=== PATIENT | female | born 1955 | race Caucasian/White ===

== ENCOUNTER → 2016-11-22 | Outpatient (REF) | payer BC ==
[~2016-11-22] MED LIST: /ESOM40CA; LIDO5DIS; VICO5TAB; VITAMIN D50000 UNT
== END ==
LOC: M LAB REF 12:17
PROVIDERS: ATTEND Physician Assistant
DX: J02.9 Acute pharyngitis, unspecified (principal)

== ENCOUNTER → 2018-12-02 | Outpatient (REF) | payer BC | LOC: M LAB REF 13:23 | PROVIDERS: ATTEND Plastic Surgery Surgery of the Hand | DX: D21.0 Benign neoplasm of connective and other soft tissue of head, face and neck (principal) ==

== ENCOUNTER → 2019-05-05 | Outpatient (CLI) | payer BC ==
[~2019-05-05] MED LIST changes: -/ESOM40CA; +NEXI1CAP3
[2019-05-05 13:11] LABS: BASO # 0.1 10^3/uL (0.0-0.2); EOS # 0.2 10^3/uL (0.0-0.50); EOS % 2.5 % (0.0-3.0); HEMATOCRIT 47.6 % (36.0-47.0); HEMOGLOBIN 15.8 g/dl (12.0-15.5); LYMPH # 2.2 10^3/uL (1.5-4.5); LYMPH % 31.3 % (24.0-44.0); MEAN CORPUSCULAR HEMOGLOBIN 31.5 pg (27.0-33.0); MEAN CORPUSCULAR HGB CONC 33.2 g/dl (32.0-36.5); MONO # 0.6 10^3/uL (0.0-0.8); NEUTROPHILS % 56.8 % (36.0-66.0); PLATELET COUNT, AUTOMATED 377 10^3/uL (150-450); RED BLOOD COUNT 5.01 10^6/uL (4.00-5.40); WHITE BLOOD COUNT 7.1 10^3/uL (4.0-10.0)
[2019-05-05 13:22] LABS: ALBUMIN 4.1 GM/DL (3.2-5.2); ALT/SGPT 21 U/L (12-78); BILIRUBIN,TOTAL 0.4 MG/DL (0.2-1.0); BLOOD UREA NITROGEN 10 MG/DL (7-18); CARBON DIOXIDE LEVEL 32 MEQ/L (21-32); CHLORIDE LEVEL 105 MEQ/L (98-107); CHOLESTEROL LEVEL 170 MG/DL (<200); FREE T4 0.94 NG/DL (0.76-1.46); GLOMERULAR FILTRATION RATE > 60.0 (>45); GLUCOSE, FASTING 94 MG/DL (70-100); HDL CHOLESTEROL 50 MG/DL (>40); LDL CHOLESTEROL 96 MG/DL (<100); NON-HDL-C 120 MG/DL; POTASSIUM SERUM 4.2 MEQ/L (3.5-5.1); SODIUM LEVEL 141 MEQ/L (136-145); THYROID STIMULATING HORMONE 0.782 uIU/ML (0.358-3.740); TOTAL PROTEIN 7.7 GM/DL (6.4-8.2); TRIGLYCERIDES LEVEL 118 MG/DL (<150)
[2019-05-05 13:52] LABS: HEMOGLOBIN A1c 5.8 %
--- NOTE | 2019-05-05 21:29 | REP ---
Clinical: Dyspnea . Comparison: 03/03/2016 . Technique: PA and lateral. Findings: The mediastinum and cardiac silhouette are normal. The lung jara are clear and without acute consolidation, effusion, or pneumothorax. The skeletal structures are intact and normal. Impression: 1. No acute cardiopulmonary process. Electronically Signed by Ronan Penn MD 05/05/2019 09:20 P
== END ==
LOC: M WUC 08:18
PROVIDERS: ATTEND Physician Assistant
DX: Z13.29 Encounter for screening for other suspected endocrine disorder (principal); Z13.220 Encounter for screening for lipoid disorders; R06.00 Dyspnea, unspecified

== ENCOUNTER → 2019-05-28 | Outpatient (REF) | payer BC | LOC: M LAB REF 17:19 | PROVIDERS: ATTEND Radiology Diagnostic Radiology | DX: N60.31 Fibrosclerosis of right breast (principal) ==

== ENCOUNTER → 2020-04-22 | Outpatient (CLI) | payer BC ==
[2020-04-22 10:03] LABS: BASO # 0.1 10^3/uL (0.0-0.2); BASO % 0.6 % (0.0-1.0); EOS # 0.3 10^3/uL (0.0-0.5); EOS % 3.8 % (0.0-3.0); HEMATOCRIT 45.2 % (36.0-47.0); LYMPH # 2.2 10^3/uL (1.5-5.0); MEAN CORPUSCULAR HEMOGLOBIN 30.9 pg (27.0-33.0); MEAN CORPUSCULAR HGB CONC 33.2 g/dl (32.0-36.5); MEAN CORPUSCULAR VOLUME 93.2 fl (80.0-96.0); MONO # 0.7 10^3/uL (0.0-0.8); MONO % 8.4 % (0.0-5.0); NEUTROPHILS # 4.7 10^3/uL (1.5-8.5); NEUTROPHILS % 58.8 % (36.0-66.0); PLATELET COUNT, AUTOMATED 369 10^3/uL (150-450); RED BLOOD COUNT 4.85 10^6/uL (4.00-5.40)
[2020-04-22 10:23] LABS: HEMOGLOBIN A1c 5.8 %
[2020-04-22 10:30] LABS: ALT/SGPT 28 U/L (12-78); BILIRUBIN,TOTAL 0.5 MG/DL (0.2-1.0); BLOOD UREA NITROGEN 11 MG/DL (7-18); CALCIUM LEVEL 9.6 MG/DL (8.8-10.2); CARBON DIOXIDE LEVEL 28 MEQ/L (21-32); CHLORIDE LEVEL 105 MEQ/L (98-107); CREATININE FOR GFR 0.66 MG/DL (0.55-1.30); GLOMERULAR FILTRATION RATE > 60.0 (>45); GLUCOSE, FASTING 95 MG/DL (70-100); POTASSIUM SERUM 4.7 MEQ/L (3.5-5.1); SODIUM LEVEL 141 MEQ/L (136-145); TOTAL PROTEIN 7.6 GM/DL (6.4-8.2)
== END ==
LOC: M WUC 08:13
PROVIDERS: ATTEND Physician Assistant
DX: R73.01 Impaired fasting glucose (principal)

== ENCOUNTER → 2020-11-05 | Outpatient (CLI) | payer BC ==
[2020-11-05 12:48] LABS: BASO # 0.1 10^3/uL (0.0-0.2); BASO % 1.1 % (0.0-1.0); EOS # 0.1 10^3/uL (0.0-0.5); EOS % 1.5 % (0.0-3.0); HEMATOCRIT 41.7 % (36.0-47.0); HEMOGLOBIN 13.9 g/dl (12.0-15.5); LYMPH # 2.7 10^3/uL (1.5-5.0); LYMPH % 33.6 % (24.0-44.0); MEAN CORPUSCULAR HEMOGLOBIN 30.2 pg (27.0-33.0); MEAN CORPUSCULAR HGB CONC 33.3 g/dl (32.0-36.5); MEAN CORPUSCULAR VOLUME 90.7 fl (80.0-96.0); MONO # 0.7 10^3/uL (0.0-0.8); MONO % 8.2 % (0.0-5.0); NEUTROPHILS # 4.5 10^3/uL (1.5-8.5); NEUTROPHILS % 55.2 % (36.0-66.0); PLATELET COUNT, AUTOMATED 361 10^3/uL (150-450); WHITE BLOOD COUNT 8.1 10^3/uL (4.0-10.0)
[2020-11-05 13:27] LABS: ALBUMIN 4.2 GM/DL (3.2-5.2); ALT/SGPT 26 U/L (12-78); BILIRUBIN,TOTAL 0.5 MG/DL (0.2-1.0); BLOOD UREA NITROGEN 14 MG/DL (7-18); CALCIUM LEVEL 9.6 MG/DL (8.8-10.2); CARBON DIOXIDE LEVEL 28 MEQ/L (21-32); CHLORIDE LEVEL 105 MEQ/L (98-107); CHOLESTEROL LEVEL 154 MG/DL (<200); CHOLESTEROL RISK RATIO 3.347 (<5); CREATININE FOR GFR 0.87 MG/DL (0.55-1.30); FREE T4 1.14 NG/DL (0.76-1.46); GLOMERULAR FILTRATION RATE > 60.0 (>45); GLUCOSE, FASTING 104 MG/DL (70-100); HDL CHOLESTEROL 46 MG/DL (>40); LDL CHOLESTEROL 89 MG/DL (<100); NON-HDL-C 108 MG/DL; POTASSIUM SERUM 3.5 MEQ/L (3.5-5.1); SODIUM LEVEL 138 MEQ/L (136-145); THYROID STIMULATING HORMONE 0.454 uIU/ML (0.358-3.740); TOTAL PROTEIN 7.1 GM/DL (6.4-8.2); TRIGLYCERIDES LEVEL 93 MG/DL (<150)
[2020-11-05 13:56] LABS: HEMOGLOBIN A1c 5.3 %
== END ==
LOC: M WUC 11:21
PROVIDERS: ATTEND Family Medicine
DX: I10 Essential (primary) hypertension (principal); K21.9 Gastro-esophageal reflux disease without esophagitis; R73.01 Impaired fasting glucose

== ENCOUNTER → 2021-01-24 | Outpatient (CLI) | payer BC ==
--- NOTE | 2021-01-26 01:32 | ECWPNPC ---
PATIENT NAME: QUYNH GAMBOA : 1955 GENDER: FEMALE VISIT DATE: 01/24/2021 DISCHARGE DATE: 01/24/21 1354 VISIT LOCKED DATE TIME: PHYSICIAN: DUGLAS ALNDRY RESOURCE: DUGLAS LANDRY REASON FOR APPOINTMENT 1. MID BACK/ THORACIC HISTORY OF PRESENT ILLNESS DEPRESSION SCREENING: PHQ-2 (2015 EDITION) LITTLE INTEREST OR PLEASURE IN DOING THINGS?NOT AT ALL FEELING DOWN, DEPRESSED, OR HOPELESS?NOT AT ALL TOTAL SCORE0 65-YEAR-OLD FEMALE IN FOR INITIAL PAIN CONSULT WITH REGARDS TO THORACIC BACK PAIN. PATIENT ADMITS THE PAIN HAS BEEN PRESENT FOR SEVERAL YEARS. WHEN ASKED SHE DENIES HISTORY OF TRAUMA. PATIENT DOES ADMIT TO HAVING RADIOFREQUENCY ABLATIONS IN THE PAST WITH GOOD RESULTS. SHE RATES HER PAIN CURRENTLY AT A 6 OUT OF 10 AND DESCRIBES IT BURNING, AND CONTINUOUS. GENERAL: - - -. FALL RISK SCREENING: SCREENING : NO FALLS REPORTED IN THE LAST YEAR , : NO FALLS REPORTED IN THE LAST YEAR. PAIN SCREENING: PATIENT HAS A COMPLAINT OF ACUTE OR CHRONIC PAIN :YES LOCATION OF PAIN:MID BACK, LOW BACK INTENSITY OF PAIN (SCALE OF 1 TO 10):6 WHAT DOES YOUR PAIN FEEL LIKE:BURNING, CONTINOUS DURATION:CONTINOUS, CONSTANT, AWAKENS FROM SLEEP PAIN IS INCREASED BY:ACTIVITIES, PROLONGED STANDING PAIN IS DECREASED BY:USE OF PAIN MEDICATIONS, SITTING NAPROXEN HELPED WITH SLEEP. NURSING NOTE: - - -. PAIN CENTER INTAKE QUESTIONS: DO YOU HAVE A HISTORY OF MRSA? :NO DO YOU TAKE A BLOOD THINNERS? :NO DO YOU HAVE ANY BLEEDING DISORDERS? :NO ANY NEW NUMBNESS OR WEAKNESS IN YOUR LEGS OR ARMS? :NO ANY PACEMAKER,DEFIBRILLATOR, OR DORSAL COLUMN STIMULATOR? :NO DO YOU HAVE ANY RASHES OR OPEN SORES? :NO ARE YOU ALLERGIC TO IV DYE? :NO ARE YOU DIABETIC? :NO ANY NEW PROBLEMS WITH YOUR MEDICATIONS? :NO HAVE YOU RECEIVED A VACCINE IN THE PAST 30 DAYS? :NO DO YOU PLAN TO RECEIVE A VACCINE IN THE NEXT 21 DAYS? :NO DO YOU NEED ANY PRESCRIPTION? :NO DO YOU TAKE ANY IMMUNOSUPPRESSIVE MEDICATIONS? :NO DO YOU HAVE ANY KIDNEY OR LIVER DISEASE? :NO IS THERE A CHANCE YOU COULD BE ? :NO ARE YOU BREAST FEEDING? :NO CURRENT MEDICATIONS TAKING AMLODIPINE BESYLATE 10 MG TABLET 1 TABLET ORALLY ONCE A DAY TAKING BREO ELLIPTA 200-25 MCG/INH AEROSOL POWDER BREATH ACTIVATED 1 PUFF INHALATION ONCE A DAY TAKING LISINOPRIL 20 MG TABLET 1 TABLET ORALLY ONCE A DAY TAKING PROAIR HFA 108 (90 BASE) MCG/ACT AEROSOL SOLUTION 2 PUFFS NEEDED INHALATION QID PRN MEDICATION LIST REVIEWED AND RECONCILED WITH THE PATIENT PAST MEDICAL HISTORY GERD HYPERTENSION ASTHMA ALLERGIES N.K.D.A. SURGICAL HISTORY RADIOFREQUENCY ABLATION THORACIC SPINE SOCIAL HISTORY GENERAL: TOBACCO USE ARE YOU A:CURRENT SMOKER MALES, AGE 65-75 WITH 5 PACK SMOKING HISTORY (100 CIGARETTES LIFETIME)YES LATEX QUESTIONNAIRE LATEX ALLERGY : HAVE YOU EVER DEVELOPED ANY TYPE OF REACTION AFTER HANDLING LATEX PRODUCTS SUCH RUBBER GLOVES, CONDOMS, DIAPHRAGMS, BALLOONS, SOCKS, OR UNDERWEAR?NO LATEX ALLERGY : HAVE YOU EVER DEVELOPED ANY TYPE OF REACTION DURING OR AFTER DENTAL APPOINTMENT, VAGINAL/RECTAL EXAMINATION, SURGICAL PROCEDURE, OR ANY OTHER EXPOSURE?NO LATEX RISK : HAVE YOU EVER HAD ANY DIFFICULTY BREATHING OR HIVES AFTER EATING OR HANDLING ANY FRUITS, OR VEGETABLES; SUCH KIWI, BANANAS, STONE FRUITS, OR CHESTNUTSNO LATEX RISK : DO YOU HAVE A PREVIOUS PERSONAL HISTORY OF MORE THAN NINE SURGERIES, SPINA BIFIDA, OR REPEATED CATHERIZATIONS? NO LATEX RISK : ARE YOU FREQUENTLY EXPOSED TO LATEX PRODUCTS IN YOUR OCCUPATION?NO DATE ASKED : 01/24/2021 ALCOHOL USE: NO. RECREATIONAL DRUG USE DRUG USE?NO CAFFEINE CAFFEINE USE?YES LANGUAGE LANGUAGES SPOKEN:SLOVAK LEARNING BARRIERS / SPECIAL NEEDS BARRIERS TO LEARNING?NO HEARING IMPAIRED?NO VISION IMPAIRED?YES :CORRECTIVE LENSES COGNITIVELY IMPAIRED?NO READINESS TO LEARN?YES LEARNING PREFERENCES?NO LEARNING CAPABILITIES PRESENT?YES EMOTIONAL BARRIERS?NO SPECIAL DEVICES?NO AUTOMOBILE DAMAGE APPRAISER NEEDED?NO REVIEW OF SYSTEMS CONSTITUTIONAL: ANY RECENT FEVER NO . CHILLS NO . WEIGHT CHANGE OF UNKNOWN REASONS NO . MUSCULOSKELETAL: ANY UNUSUAL JOINT PAIN OR SWELLING NOT MENTIONED NO . SYSTEMIC LUPUS NO . ANY NEUROMUSCULAR DISORDER NOT MENTIONED NO . LYME DISEASE NO . GASTROENTEROLOGY: ANY NEW CHANGE IN BOWEL CONTROL? NO . HISTORY OF LIVER DISORDER NOT MENTIONED NO . HISTORY OF UNUSUAL ABDOMINAL PAIN OR CRAMPING NOT MENTIONED NO . NO CONSTIPATION. GENITOURINARY: ANY NEW CHANGE IN BLADDER CONTROL? NO . ANY RENAL/KIDNEY CONDITON NOT MENTIONED NO . NEUROLOGY: HISTORY OF TBI NOT MENTIONED NO . OTHER NEW NUMBNESS OR PAIN PATTERNS NOT MENTIONED NO . NEW ONSET DIZZINESS OR NEUROLOGICAL CHANGES NOT MENTIONED NO . HISTORY OF SEVERE HEADACHES NOT MENTIONED NO . HISTORY OF STROKE OR NEUROLOGICAL DISORDER NOT MENTIONED NO . CARDIOLOGY: HEART SURGERY NO . CONGESTIVE HEART FAILURE/FLUID OVERLOAD NOT MENTIONED NO . HISTORY OF CHEST PAIN,IRREGULAR HEART BEAT NOT MENTIONED NO . RESPIRATORY: SHORTNESS OF BREATH ON EXERTION, WHEEZES, UNUSUAL COUGH NOT MENTIONED NO . ENDOCRINOLOGY: ADRENAL GLAND OR THYROID DISORDERS NOT MENTIONED NO . UNUSUAL URINATION, DIZZINESS OR LETHARGY NOT MENTIONED NO . VITAL SIGNS WT 174.6 LBS, HT 55 IN, BMI 40.58 INDEX, BP 126/62 MM HG, HR 90 /MIN, RR 18 /MIN, TEMP 96.0 F, OXYGEN SAT % 94%, SAFE IN ENV? (Y/N) YES, NA INITIALS AW 1311, REVIEWED BY: LIA MARTELL MA. EXAMINATION GENERAL EXAMINATION: GENERALNO ACUTE DISTRESS, WELL NOURISHED AND HYDRATED. PSYCHAPPROPRIATE MOOD AND AFFECT . LUNGS:CLEAR TO AUSCULTATION BILATERALLY, NO WHEEZES, RHONCHI, RALES. HEART:NO MURMURS, REGULAR RATE AND RHYTHM. BACK:DENIES POINT TENDERNESS ALONG THORACIC SPINE, SURROUNDING SKIN SHOWS NO ERYTHEMA, ECCHYMOSIS, INCREASED WARMTH, AND/OR SKIN ERUPTIONS NOTED. . ASSESSMENTS THORACIC BACK PAIN - M54.6 (PRIMARY) TREATMENT THORACIC BACK PAIN [facility] MRI SPINE,THORACIC WITHOUT [id number] NOTES: 65-YEAR-OLD FEMALE IN FOR INITIAL PAIN CONSULT. GIVEN PRESENTING SYMPTOMS RECOMMENDED MRI OF THE THORACIC SPINE WITHOUT CONTRAST WITH POST IMAGING FOLLOW-UP. PATIENT HAS EXPRESSED UNDERSTANDING OF AND WAS IN AGREEMENT WITH TREATMENT PLAN. GIVEN TIME TO ASK QUESTIONS AND EXPRESS CONCERNS. PROCEDURE CODES FA211 ESTABILISHED PATIENT [facility] FACILITY CHARGE DISPOSITION & COMMUNICATION FOLLOW UP POST IMAGING (REASON: MRI OF THE THORACIC SPINE WITHOUT CONTRAST) ELECTRONICALLY SIGNED BY DESHAWN TOBIAS ON 01/25/2021 AT 10:02 AM EDT DISCLAIMER : THIS IS A VISIT SUMMARY EXTRACTED FROM THE [employer] CHART. IT IS NOT A COPY OF THE [employer] PROGRESS NOTE. WENDY
== END ==
LOC: M PAIN 13:00
PROVIDERS: ATTEND Family Medicine
DX: M54.6 Pain in thoracic spine (principal); K21.9 Gastro-esophageal reflux disease without esophagitis; I10 Essential (primary) hypertension; J45.909 Unspecified asthma, uncomplicated; F17.210 Nicotine dependence, cigarettes, uncomplicated; Z79.899 Other long term (current) drug therapy

== ENCOUNTER → 2021-01-28 | Outpatient (CLI) | payer BC ==
--- NOTE | 2021-01-28 19:21 | REPVR ---
PROCEDURE INFORMATION: Exam: MR Thoracic Spine Without Contrast Exam date and time: 01/28/2021 7:01 PM Age: 65 years old Clinical indication: Pain in thoracic spine; Without myelpathy or radiculopathy; Additional info: Back pain TECHNIQUE: Imaging protocol: Multiplanar magnetic resonance images of the thoracic spine without intravenous contrast. COMPARISON: No relevant prior studies available. FINDINGS: There is minimal loss of superior endplate height at T11 with edema. No osseous retropulsion. Remainder demonstrates preserved height and AP alignment. Incidental T4 hemangioma. There are few scattered small foci of increased STIR signal. Multilevel disc desiccation. No evidence of discitis/osteomyelitis. No abnormal cord signal or cord expansion. No epidural fluid collection. There are small thoracic protrusions without significant central canal stenosis. Right thyroid nodule measures 3.9 cm. IMPRESSION: 1. Minimal superior endplate compression fracture at T11 with edema, acute/subacute. 2. No abnormal cord signal or epidural fluid collection. 3. There are a few additional small scattered foci of increased STIR signal, nonspecific. Possible lipid poor hemangiomas, follow-up recommended to exclude more aggressive neoplastic process. 4. Small thoracic protrusions without significant central canal compromise. 5. Right thyroid mass measures 3.9 cm. Electronically signed by: aMdi Lester On 01/28/2021 19:22:04 PM
== END ==
LOC: M RAD 17:26
PROVIDERS: ATTEND Family Medicine
DX: E04.1 Nontoxic single thyroid nodule (principal); M54.6 Pain in thoracic spine

== ENCOUNTER → 2021-02-18 | Outpatient (CLI) | payer BC ==
--- NOTE | 2021-02-18 15:23 | REP ---
INDICATION: PAIN IN T SPINE, WEDGE COMPRESSION FX. COMPARISON: Comparison radiographs December 21, 2020. Comparison MRI study of the thoracic spine 28 January 2021.. TECHNIQUE: 22.0 mCi of technetium 99 M MDP is injected and three-phase bone scanning of the midthoracic area is carried out. FINDINGS: Anterior and posterior flow images are unremarkable. Blood pool images show no area of regional hyperemia. Delayed scan images demonstrate a horizontally distributed area of increased uptake along the vertebral and plate superiorly at what appears to be the T11 vertebral body. This corresponds with the area of anterior wedging and superior vertebral body edema seen on MRI. This is compatible with a subacute wedge compression fracture deformity, within 2 years. No other area of abnormal or suspicious uptake is seen. Mild degenerative uptake pattern is seen in the midthoracic spine. There is uptake in bilateral kidneys and in the urinary bladder. IMPRESSION: Findings consistent with a recent wedge compression fracture deformity at T11. No evidence to suggest skeletal metastatic disease seen. <Electronically signed by Judah Arteaga > 02/18/21 0633
== END ==
LOC: M RAD 11:31
PROVIDERS: ATTEND Physician Assistant
DX: S22.000A Wedge compression fracture of unspecified thoracic vertebra, initial encounter for closed fracture (principal); M54.6 Pain in thoracic spine; X58.XXXA Exposure to other specified factors, initial encounter; Y92.9 Unspecified place or not applicable; Y93.9 Activity, unspecified; Y99.9 Unspecified external cause status
CPT/HCPCS: 78315; A9503

== ENCOUNTER → 2021-02-18 | Outpatient (CLI) | payer BC | LOC: M WUC 10:32 | PROVIDERS: ATTEND Internal Medicine Endocrinology, Diabetes & Metabolism | DX: E55.9 Vitamin D deficiency, unspecified (principal) ==

== ENCOUNTER → 2021-03-04 | Outpatient (REF) | LOC: M LAB 13:28 | PROVIDERS: ATTEND Nurse Practitioner Adult Health | DX: Z02.9 Encounter for administrative examinations, unspecified (principal) ==

== ENCOUNTER → 2021-04-19 | Outpatient (CLI) | payer BC ==
--- NOTE | 2021-04-19 16:21 | DEXAMM ---
INDICATION: M81.0 AGE REL OSTEOPOROSIS W/O FX. COMPARISON: 12/10/2009. TECHNIQUE: Bone density was measured using dual-energy x-ray absorptiometry (DEXA). FINDINGS: AP SPINE L1-L4 BMD 1.081 g/cm2 Young Adult T-Score -0.9 Age Matched Z-Score 0.7. LT FEMUR, TOTAL BMD 0.811 g/cm2 Young Adult T-Score -1.6 Age Matched Z-Score -0.3. LT NECK BMD 0.800 g/cm2 Young Adult T-Score -1.7 Age Matched Z-Score -0.2. RT FEMUR, TOTAL BMD 0.797 g/cm2 Young Adult T-Score -1.7 Age Matched Z-Score -0.4. RT NECK BMD 0.761 g/cm2 Young Adult T-Score -2.0 Age Matched Z-Score -0.4. IMPRESSION: There is normal bone density of the spine. There is low bone density of the left hip. There is low bone density of the right hip. The density of the spine has decreased 2.7% since the initial exam on 12/10/2009. The density of the left hip has decreased 2.6% since initial exam on 12/10/2009. The density of the right hip has decreased 2.7% since the initial exam on 12/10/2009. FOLLOW-UP: Recommendation for the next bone density exam: 2 years. <Electronically signed by Young Mclaughlin > 04/19/21 0847
== END ==
LOC: M WHC 15:35
PROVIDERS: ATTEND Internal Medicine Endocrinology, Diabetes & Metabolism
DX: M81.0 Age-related osteoporosis without current pathological fracture (principal)

== ENCOUNTER → 2021-05-10 | Outpatient (CLI) | payer BC ==
[~2021-05-10] MED LIST changes: +LISI10TA22 PO
[2021-05-10 20:12] LABS: BLOOD UREA NITROGEN 15 MG/DL (7-18); CALCIUM LEVEL 9.2 MG/DL (8.8-10.2); CARBON DIOXIDE LEVEL 27 MEQ/L (21-32); CHLORIDE LEVEL 106 MEQ/L (98-107); CREATININE FOR GFR 0.65 MG/DL (0.55-1.30); GLOMERULAR FILTRATION RATE > 60.0 (>45); GLUCOSE, FASTING 95 MG/DL (70-100); SODIUM LEVEL 138 MEQ/L (136-145)
== END ==
LOC: M WUC 15:31
PROVIDERS: ATTEND Internal Medicine Endocrinology, Diabetes & Metabolism
DX: M81.0 Age-related osteoporosis without current pathological fracture (principal)

== ENCOUNTER 2021-05-17 15:04 | Outpatient (CLI) | payer BC ==
[~2021-05-17] VITALS: Ht 167.6 cm; Wt 78.0 kg
[~2021-05-17 15:04] MED LIST changes: -LISI10TA22 PO; +ZOLEDRONIC ACID 5 MG in IV 1 EA IV ONE
[2021-05-17 15:08] VITALS: BP 132/73
[2021-05-17] MEDS ORDERED: LISI10TA22 PO (15:39)
[2021-05-17 15:48] VITALS: BP 130/75
== END 2021-05-17 16:00 ==
LOC: M INFU 15:04
PROVIDERS: ATTEND Internal Medicine Endocrinology, Diabetes & Metabolism
DX: M81.0 Age-related osteoporosis without current pathological fracture (principal)
CPT/HCPCS: 96365; J3489

== ENCOUNTER → 2021-08-15 | Outpatient (CLI) | payer BC ==
[~2021-08-15] MED LIST changes: +LISI10TA22 PO; -ZOLEDRONIC ACID 5 MG in IV 1 EA IV ONE
[2021-08-15 17:15] LABS: BASO # 0.1 10^3/uL (0.0-0.2); BASO % 0.8 % (0.0-1.0); EOS # 0.2 10^3/uL (0.0-0.5); EOS % 1.9 % (0.0-3.0); HEMATOCRIT 43.1 % (36.0-47.0); HEMOGLOBIN 14.5 g/dl (12.0-15.5); LYMPH # 2.9 10^3/uL (1.5-5.0); LYMPH % 27.2 % (24.0-44.0); MEAN CORPUSCULAR HEMOGLOBIN 30.9 pg (27.0-33.0); MEAN CORPUSCULAR HGB CONC 33.6 g/dl (32.0-36.5); MEAN CORPUSCULAR VOLUME 91.9 fl (80.0-96.0); MONO # 0.8 10^3/uL (0.0-0.8); MONO % 7.7 % (2.0-8.0); NEUTROPHILS # 6.5 10^3/uL (1.5-8.5); PLATELET COUNT, AUTOMATED 399 10^3/uL (150-450); RED BLOOD COUNT 4.69 10^6/uL (4.00-5.40); WHITE BLOOD COUNT 10.5 10^3/uL (4.0-10.0)
[2021-08-15 17:31] LABS: ALT/SGPT 20 U/L (12-78); BILIRUBIN,TOTAL 0.2 MG/DL (0.2-1.0); BLOOD UREA NITROGEN 10 MG/DL (7-18); CALCIUM LEVEL 9.7 MG/DL (8.8-10.2); CARBON DIOXIDE LEVEL 28 MEQ/L (21-32); CHLORIDE LEVEL 106 MEQ/L (98-107); CREATININE FOR GFR 0.61 MG/DL (0.55-1.30); GLOMERULAR FILTRATION RATE > 60.0 (>45); GLUCOSE, FASTING 89 MG/DL (70-100); SODIUM LEVEL 139 MEQ/L (136-145); TOTAL PROTEIN 7.3 GM/DL (6.4-8.2)
== END ==
LOC: M LAB 15:58
PROVIDERS: ATTEND Family Medicine
DX: I10 Essential (primary) hypertension (principal)

== ENCOUNTER → 2021-08-15 | Outpatient (CLI) | payer BC ==
[2021-08-15 17:29] LABS: BLOOD UREA NITROGEN 10 MG/DL (7-18); CALCIUM LEVEL 9.6 MG/DL (8.8-10.2); CARBON DIOXIDE LEVEL 28 MEQ/L (21-32); CHLORIDE LEVEL 106 MEQ/L (98-107); CREATININE FOR GFR 0.62 MG/DL (0.55-1.30); GLOMERULAR FILTRATION RATE > 60.0 (>45); GLUCOSE, FASTING 89 MG/DL (70-100); SODIUM LEVEL 138 MEQ/L (136-145)
== END ==
LOC: M LAB 15:54
PROVIDERS: ATTEND Internal Medicine Endocrinology, Diabetes & Metabolism
DX: M81.0 Age-related osteoporosis without current pathological fracture (principal)

== ENCOUNTER → 2021-08-29 | Outpatient (CLI) | payer BC ==
[~2021-08-29] MED LIST changes: +PROHANCE 279.3MG/ML 15ML VIAL ONE
--- NOTE | 2021-08-30 10:27 | REPVR ---
PROCEDURE INFORMATION: Exam: MR Thoracic Spine Without and With Contrast Exam date and time: 08/29/2021 3:22 PM Age: 66 years old Clinical indication: Pain in thoracic spine; Additional info: Thoracic spine pain TECHNIQUE: Imaging protocol: Multiplanar magnetic resonance images of the thoracic spine without and with contrast. Contrast material: PROHANCE; Contrast volume: 15 ml; Contrast route: INTRAVENOUS (IV); COMPARISON: MRI-Spine,Thoracic without con 01/28/2021 6:16 PM FINDINGS: Vertebrae: There is no fracture or listhesis. Aside from scattered hemangiomas, most pronounced at T4, marrow signal is within normal limits. There is a prominent Schmorl's node along the superior endplate of T11. Spinal cord: Normal signal. No cord compression. Discs/Spinal canal/Neural foramina: There are shallow multilevel disc bulges. At T3/4, facet hypertrophy asymmetric to the right contributes to severe n right eural foraminal narrowing. At T4/5, facet hypertrophy asymmetric to the right contributes to severe right neural foraminal narrowing. Soft tissues: Unremarkable. IMPRESSION: No acute abnormality. Chronic changes most pronounced at T3/4 and T4/5, where facet hypertrophy asymmetric to the right contributes to severe right neural foraminal narrowing. Electronically signed by: Petra Rodriguez On 08/30/2021 10:27:13 AM
== END ==
LOC: M PLAIMG 13:59
PROVIDERS: ATTEND Physician Assistant
DX: M54.6 Pain in thoracic spine (principal); D43.4 Neoplasm of uncertain behavior of spinal cord
CPT/HCPCS: 72157; A9576

== ENCOUNTER 2021-09-06 21:29 | Emergency (ER) | payer BC ==
[~2021-09-06] VITALS: Ht 165.1 cm; Wt 80.1 kg
[~2021-09-06 21:29] MED LIST changes: -PROHANCE 279.3MG/ML 15ML VIAL ONE
--- OUTSIDE RECORDS SUMMARY | 2021-09-06 21:37 | CCD | Continuity of Care Document ---
Author Author Lizbeth BRAUN MD Organization Unknown Address [address] [place] [address], [address] [place] [address] Phone [phone] Care Team Providers Care Roller [employer] Name Role Phone FlorentinoReynaldo hardy MACARENA AUTM [phone] Problems Active Problems Provider Date Essential hypertension Rosa Braun MD Onset: 02/15/2021 Social History Type Date Description Comments Sex Unknown Cigarette Use Current Cigarette Smoker 1 Pack Daily ETOH Use Rarely consumes alcohol Tobacco Use Start: Unknown Patient is a current smoker, smo kes every day Smoking Status Reviewed: 08/18/21 Patient is a current smoker, smokes every day Allergies and adverse reactions Description No Known Drug Allergies Medications Active Medications SIG Qnty Indications Ordering Provide r Date Lisinopril 20mg Tablets 1 by mouth daily Unknown Amlodipine Besylate 10mg Tablets 1 by mouth daily Unknown Breo Ellipta 200-25mcg/Inh Aerosol as needed Unknown Calcium Citrate (Dosage Unknown) 1 tablet once daily Unknown History Medications Ergocalciferol 1.25mg (67243 Ut) C apsules 1 tablet every week with dinner for 12 weeks 12caps E55.9 Cla susan Braun MD 03/17/2021 - 08/18/2021 Immunizations Description No Information Available Vital Signs Date Vital Result Comment 08/18/2021 2:59pm BP Systolic 118 mmHg BP Diastolic 68 mmHg Heart Rate 88 /min Height 63.8 inches 5'3.80" Weight 172.00 lb BMI (Body Mass Index) 29.7 kg/m2 O2 % BldC Oximetry 94 % 03/17/2021 3:54pm BP Systolic 118 mmHg BP Diastolic 76 mmHg Heart Rate 104 /min Body Temperature 97.1 F Height 63.8 inches 5'3.80" Weight 172.00 lb BMI (Body Mass Index) 29.7 kg/m2 O2 % BldC Oximetry 94 % Results Test Acquired Date Facility Test Result H/L Range Note Basic Metabolic Profile 08/15/2021 [facility] [address] [place] [address] [phone] Glucose, Fasting 89 mg/dL Normal 70-100 Blood Urea Nitrogen 10 mg/dL Normal 7-18 Creatinine For GFR 0.62 mg/dL Normal 0.55-1.30 Glomerular Filtration Rate > 60.0 Normal >45 1 Sodium Level 138 mEq/L Normal 136-145 Potassium Serum 4.0 mEq/L Normal 3.5-5.1 Chloride Level 106 mEq/L Normal 98-107 Carbon Dioxide Level 28 mEq/L Normal 21-32 Anion Gap 4 mEq/L Low 8-16 Calcium Level 9.6 mg/dL Normal 8.8-10.2 Basic Metabolic Profile 05/10/2021 [facility] [address] [place] [address] [phone] - Glucose, Fasting 95 mg/dL Normal 70-100 Blood Urea Nitrogen 15 mg/dL Normal 7-18 Creatinine For GFR 0.65 mg/dL Normal 0.55-1.30 Glomerular Filtration Rate > 60.0 Normal >45 2 Sodium Level 138 mEq/L Normal 136-145 Potassium Serum 4.0 mEq/L Normal 3.5-5.1 Chloride Level 106 mEq/L Normal 98-107 Carbon Dioxide Level 27 mEq/L Normal 21-32 Anion Gap 5 mEq/L Low 8-16 Calcium Level 9.2 mg/dL Normal 8.8-10.2 1 Units are mL/min/1.73 m2 Chronic Kidney Disease Staging per NKF: Stage I & II GFR >=60 Normal to Mildly Decreased Stage III GFR 30-59 Moderately Decreased Stage IV GFR 15-29 Severely Decreased Stage V GFR <15 Very Little GFR Left ESRD GFR <15 on CHIEF DESIGN BRANCH 2 Units are mL/min/1.73 m2 Chronic Kidney Disease Staging per NKF: Stage I & II GFR >=60 Normal to Mildly Decreased Stage III GFR 30-59 Moderately Decreased Stage IV GFR 15-29 Severely Decreased Stage V GFR <15 Very Little GFR Left ESRD GFR <15 on CHIEF DESIGN BRANCH Procedures Date Code Description Status 08/18/2021 50686 Office/Outpatient Established Mo d MDM 30-39 Min Completed 03/17/2021 93514 Office/Outpatient Established Mo d MDM 30-39 Min Completed Medical Devices Description No Information Available Encounters Type Date Location Provider Dx Diagnosis Office Visit 03/17/2021 4:00p DR. Rosa Braun MD M 81.0 Age- related osteoporosis w/o current pathological fracture E04.2 Nontoxic multinodular goiter Z72.0 Tobacco use E55.9 Vitamin D deficiency, unspec ified Z71.6 Tobacco abuse counseling Assessments Date Code Description Provider 08/18/2021 M81.0 Age-related osteoporosis without current pathological fracture Rosa Braun MD 08/18/2021 E04.2 Nontoxic multinodular goiter Berta Braun MD 08/18/2021 Z72.0 Tobacco use Rosa Braun MD 08/18/2021 E55.9 Vitamin D deficiency, unspecifie d Rosa Braun MD 08/18/2021 Z71.6 Tobacco abuse counseling Rosa Braun MD 03/17/2021 M81.0 Age-related osteoporosis without current pathological fracture Rosa Braun MD 03/17/2021 E04.2 Nontoxic multinodular goiter Berta Braun MD 03/17/2021 Z72.0 Tobacco use Rosa Braun MD 03/17/2021 E55.9 Vitamin D deficiency, unspecifie d Rosa Braun MD 03/17/2021 Z71.6 Tobacco abuse counseling Rosa Braun MD Plan of Treatment 08/18/2021 - Rosa Braun MD* M81.0 Age-related osteoporosis without current pathological fracture* New Labs:* Calcium Level, Scheduled: 02/27/22 * Comments:* t MRI showed a vertebral compression fracture.Consistent with osteoporosis. . MRI spine, 01/28/21 shows AT 11 endplate compression fracture. Bone scan also shows a wedge compression at T11.Clinically she has osteoporosis. Since last being seen patient had bone density test performed. She also had IV zoledronic acid infused at the hospital. Somehow she states that she has a $500 left over bill from that procedure. Advised to call the hospital for clarification.DEXA scan, 04/19/21: T score spine = -0.9,T score left femoral neck = -1.7, T score right femoral neck = -2.0. The density of the hips decreased 2 percent since 2009.Patient tolerated her infusion. Will continue to take calcium and vitamin D. Unfortunately she continues to smoke.. ----Plan for another infusion in 2021 and then repeat bone density before the further infusions are decided upon. * Follow up:* lab february 2022 * E04.2 Nontoxic multinodular goiter* Comments:* . She has had a long-standing history of a right-sided thyroid nodule measuring 3.8 x 2.8 x 3.7 cm. She underwent fine-needle aspiration of this nodule in 2011 at [facility]. Final result was benign, scattered follicular cells and a macro follicular pattern with associated macrophages. In office thyroid ultrasound was performed. Nodule measures 3.7 x 3.2 x 3.8. Normal blood flow pattern. No calcifications.Patient was reassured that the overall size of the nodules not significantly change. Previous biopsy was benign. Unlikely to have malignant transformation. Will not biopsy and left thyroid nodule enlarges significantly clinically.Thyroid function tests were reviewed and are normal. * Z72.0 Tobacco use* Comments:* Counseled about the complications of continued tobacco abuse such as heart disease vascular disease and COPD.Smoking cessation advised. * E55.9 Vitamin D deficiency, unspecified* New Labs:* Vitamin D 25-Hydroxy, Scheduled: 02/27/22 * Basic Metabolic Profile, Scheduled: 02/27/22 * Comments:* Vitamin D status was unknown.02/15/2021, 25 OH D = 23. Moderately deficient.Patient completed 12 weeks of ergocalciferol. She is is advised to start 5000 units of vitamin D daily. Recheck vitamin D in the springtime along with BMP. * Z71.6 Tobacco abuse counseling* Comments:* Tried Chantix in past but it was so expensive Functional Status Description No Information Available Mental Status Description No Information Available Referrals Refer to Reason for Referral Status Appt Date Rosa Braun MD RECLAST NO AUTH REQUIRED PER [facility] 40.00 COPAY . LS Created [address] [facility], [address] [place] [address] [phone] Rosa Braun MD DEXA SCAN NO AUTH REQUIRED PER WEB. 40.0 0 COPAY. LS Created [address], [address] [place] [address] [phone]
--- OUTSIDE RECORDS SUMMARY | 2021-09-06 21:37 | CCD | Continuity of Care Document ---
Author Author Lizbeth BLAIR D.O. Organization Unknown Address [address] [place] [address] Phone [phone] Care Team Providers Care Pump Servicer Supervisor Name Role Phone Renetta Blair D.O. AUTM Slick Ruano MD AUTM [phone] Roas Braun M.D. AUTM [phone] Kenisha Erwin M.D. AUTM [phone] Problems Active Problems Provider Date Gastroesophageal reflux disease MACARENA Blair Onset: 0 04/24/2019 Difficulty breathing MACARENA Blair Onset: 04/24/2019 Essential hypertension MACARENA Blair Onset: 04/24/2019 Chronic obstructive lung disease MACARENA Blair Onset: 01/22/2020 Social History Type Date Description Comments Sex Unknown ETOH Use Occasionally consumes alcohol Tobacco Use Start: Unknown Patient is a current smoker, smo kes every day 1 pack a day Recreational Drug Use Denies Drug Use Smoking Status Reviewed: 11/01/20 Patient is a current smoker, smokes every day 1 pack a day Sun Exposure Uses sunscreen Seat Belt/Car Seat Always uses seat belt Allergies and adverse reactions Description No Known Drug Allergies Medications Active Medications SIG Qnty Indications Ordering Provide r Date Amlodipine Besylate 10mg Tablets 1 by mouth every day 90tabs I10 Renetta Blair D.O. 12/23 Breo Ellipta 200-25mcg/Inh Aerosol to be inhaled once per day 3months R06.00 Renetta Blair D.O. 12/23/2019 Lisinopril 20mg Tablets take one tablet by mouth once a day 90tabs I10 Renetta Blair D.O. 05/30 Proair HFA 108(90Base) mcg/Act Aer osol 2 puffs every 4-6 hours as needed for shortness of breath 25.5gm R06. 00 Renetta Blair D.O. 04/24/2019 Immunizations CPT Code Status Date Vaccine Lot # [id number] Given 04/26/2020 Pneumococcal Con jugate Vaccine 13 Valent For Intramuscular Use [id number] Vital Signs Date Vital Result Comment 02/03/2021 3:35pm BP Systolic 132 mmHg BP Diastolic 88 mmHg Height 64.8 inches 5'4.80" Weight 172.00 lb BMI (Body Mass Index) 28.8 kg/m2 Heart Rate 91 /min Respiratory Rate 20 /min Body Temperature 98.2 F O2 % BldC Oximetry 95 % [place] Body Weight 120 lb 12/16/2020 4:05pm BP Systolic 150 mmHg BP Diastolic 88 mmHg Height 64.8 inches 5'4.80" Weight 177.38 lb BMI (Body Mass Index) 29.7 kg/m2 Heart Rate 78 /min Respiratory Rate 14 /min Body Temperature 97.6 F O2 % BldC Oximetry 98 % [place] Body Weight 120 lb Results Test Acquired Date Facility Test Result H/L Range Note Comprehensive Metabolic Profil 08/15/2021 [facility] Outpa tient Testing (Registration) [address] [place] [phone] Glucose, Fasting 89 mg/dL Normal 70-100 Blood Urea Nitrogen 10 mg/dL Normal 7-18 Creatinine For GFR 0.61 mg/dL Normal 0.55-1.30 Glomerular Filtration Rate > 60.0 Normal >45 1 Sodium Level 139 mEq/L Normal 136-145 Potassium Serum 4.0 mEq/L Normal 3.5-5.1 Chloride Level 106 mEq/L Normal 98-107 Carbon Dioxide Level 28 mEq/L Normal 21-32 Anion Gap 5 mEq/L Low 8-16 Calcium Level 9.7 mg/dL Normal 8.8-10.2 Ast/Sgot 11 U/L Normal 7-37 Alt/SGPT 20 U/L Normal 12-78 Alkaline Phosphatase 86 U/L Normal 45-117 Bilirubin,Total 0.2 mg/dL Normal 0.2-1.0 Total Protein 7.3 GM/DL Normal 6.4-8.2 Albumin 4.0 GM/DL Normal 3.2-5.2 Albumin/Globulin Ratio 1.2 Normal 1.2-2.2 CBC With Differential 08/15/2021 [facility] Outpatient Milena ting (Registration) [address] [place] [address] [phone] White Blood Count 10.5 10 High 4.0-10.0 Red Blood Count 4.69 10 Normal 4.00-5.40 Hemoglobin 14.5 g/dL Normal 12.0-15.5 Hematocrit 43.1 % Normal 36.0-47.0 Mean Corpuscular Volume 91.9 fl Normal 80.0-96.0 Mean Corpuscular Hemoglobin 30.9 pg Normal 27.0-33.0 Mean Corpuscular HGB Conc 33.6 g/dL Normal 32.0-36.5 Red Cell Distribution Width 13.2 % Normal 11.5-14.5 Platelet Count, Automated 399 10 Normal 150-450 Neutrophils % 62.0 % Normal 36.0-66.0 Lymph % 27.2 % Normal 24.0-44.0 Meigs % 7.7 % Normal 2.0-8.0 Eos % 1.9 % Normal 0.0-3.0 Baso % 0.8 % Normal 0.0-1.0 Immature Granulocyte % 0.4 % Normal 0-3.0 Nucleated Red Blood Cell % 0.0 % Normal 0-0 Neutrophils # 6.5 10 Normal 1.5-8.5 Lymph # 2.9 10 Normal 1.5-5.0 Meigs # 0.8 10 Normal 0.0-0.8 Eos # 0.2 10 Normal 0.0-0.5 Baso # 0.1 10 Normal 0.0-0.2 Basic Metabolic Profile 08/15/2021 [facility] Outpatient T esting (Registration) [address] [place] [address] [phone] Glucose, Fasting 89 mg/dL Normal 70-100 Blood [...] 8-16 Calcium Level 9.6 mg/dL Normal 8.8-10.2 1 Units are mL/min/1.73 m2 Chronic Kidney Disease Staging per NKF: Stage I & II GFR >=60 Normal to Mildly Decreased Stage III GFR 30-59 Moderately Decreased Stage IV GFR 15-29 Severely Decreased Stage V GFR <15 Very Little GFR Left ESRD GFR <15 on MAINTENANCE CUSTODIAN 2 Units are mL/min/1.73 m2 Chronic Kidney Disease Staging per NKF: Stage I & II GFR >=60 Normal to Mildly Decreased Stage III GFR 30-59 Moderately Decreased Stage IV GFR 15-29 Severely Decreased Stage V GFR <15 Very Little GFR Left ESRD GFR <15 on MAINTENANCE CUSTODIAN Procedures Description No Information Available Medical Devices Description No Information Available Encounters Description No Information Available Assessments Description No Information Available Plan of Treatment No Information Available Functional Status Description No Information Available Mental Status Description No Information Available Referrals Refer to Reason for Referral Status Appt Date Kenisha Erwin M.D. 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 Follow up imaging required but recently denied by insurance. Please evaluate and help determine need for further imaging. thank you. Sent [facility] Neurology [facility] [place], [place] [address] [phone]
--- OUTSIDE RECORDS SUMMARY | 2021-09-06 21:37 | CCD | Continuity of Care Document ---
Author Author Lizbeth BRAUN MD Organization Unknown Address [address] [place] [address], [address] [place] [address] Phone [phone] Care Team Providers Care Lens Cleaner Name Role Phone FlorentinoReynaldo hardy MACARENA AUTM [phone] Problems Active Problems Provider Date Essential hypertension [...] once daily Unknown History Medications Ergocalciferol 1.25mg (75675 Ut) C apsules 1 tablet every week [...] H/L Range Note Basic Metabolic Profile 08/15/2021 [facility] [address] [place] [address] [phone] Glucose, Fasting 89 mg/dL Normal [...] mg/dL Normal 8.8-10.2 Basic Metabolic Profile 05/10/2021 [facility] [address] [place] [address] [phone] Glucose, Fasting 95 mg/dL Normal [...] Little GFR Left ESRD GFR <15 on POT ROOM TAPPER 2 Units are mL/min/1.73 m2 Chronic Kidney Disease Staging per NKF: Stage I & II GFR >=60 Normal to Mildly Decreased Stage III GFR 30-59 Moderately Decreased Stage IV GFR 15-29 Severely Decreased Stage V GFR <15 Very Little GFR Left ESRD GFR <15 on POT ROOM TAPPER Procedures Date Code Description Status 08/18/2021 40951 Office/Outpatient Established Mo d MDM 30-39 Min Completed 03/17/2021 52103 Office/Outpatient Established Mo d MDM 30-39 Min Completed Medical Devices Description No Information Available Encounters Type Date Location Provider Dx Diagnosis Office Visit 08/18/2021 3:00p DR. Rosa Braun MD M 81.0 Age- related osteoporosis w/o current pathological fracture E04.2 Nontoxic multinodular goiter Z72.0 Tobacco use E55.9 Vitamin D deficiency, unspec ified Z71.6 Tobacco abuse counseling Office Visit 03/17/2021 4:00p DR. Rosa Braun [...] aspiration of this nodule in 2011 at [facility]. Final result was benign, scattered follicular cells [...] Description No Information Available Referrals Refer to Dr Reason for Referral Status Appt Date Rosa Braun MD RECLAST NO AUTH REQUIRED PER [facility] 40.00 COPAY . Created [address] [place] [id number] [phone] Rosa Braun MD DEXA SCAN NO AUTH REQUIRED PER [facility]. 40.0 0 COPAY. Created [address] [place] [id number] [phone]
--- OUTSIDE RECORDS SUMMARY | 2021-09-06 21:38 | CCD ---
Author Author [facility] Organization [facility] Address Unknown Phone Unavailable Care Team Providers Care Fairing Man Name Role Phone ANKUSH-ZELALEM, RENETTA DO Unavailable Unavailable ANKUSH-ZELALEM, RENETTA DO Unavailable Unavailable ANKUSH-ZELALEM, RENETTA DO Unavailable Unavailable ANKUSH-ZELALEM, RENETTA DO Unavailable Unavailable ANKUSH-ZELALEM, RENETTA DO Unavailable Unavailable ANKUSH-ZELALEM, RENETTA DO Unavailable Unavailable ANKUSH-ZELALEM, RENETTA DO Unavailable Unavailable ANKUSH-ZELALEM, RENETTA DO Unavailable Unavailable ANKUSH-ZELALEM, RENETTA DO Unavailable Unavailable ANKUSH-ZELALEM, RENETTA DO Unavailable Unavailable ANKUSH-ZELALEM, RENETTA DO Unavailable Unavailable ANKUSH-ZELALEM, RENETTA DO Unavailable Unavailable ANKUSH-ZELALEM, RENETTA DO Unavailable Unavailable ANKUSH-ZELALEM, RENETTA DO Unavailable Unavailable ANKUSH-ZELALEM, RENETTA DO Unavailable Unavailable ANKUSH-ZELALEM, RENETTA DO Unavailable Unavailable ANKUSH-ZELALME, RENETTA DO Unavailable Unavailable ANKUSH-ZELALEM, RENETTA DO Unavailable Unavailable ANKUSH-ZELALEM, RENETTA DO Unavailable Unavailable ANKUSH-ZELALEM, RENETTA DO Unavailable Unavailable ANKUSH-ZELALEM, RENETTA DO Unavailable Unavailable ANKUSH-ZELALEM, RENETTA DO Unavailable Unavailable ANKUSH-ZELALEM, RENETTA DO Unavailable Unavailable ANKUSH-ZELALEM, RENETTA DO Unavailable Unavailable ANKUSH-ZELALEM, RENETTA DO Unavailable Unavailable ANKUSH-ZELALEM, RENETTA DO Unavailable Unavailable ANKUSH-ZELALEM, RENETTA DO Unavailable Unavailable ANKUSH-ZELALEM, RENETTA DO Unavailable Unavailable ANKUSH-ZELALEM, RENETTA DO Unavailable Unavailable ANKUSH-ZELALEM, RENETTA DO Unavailable Unavailable ANKUSH-ZELALEM, RENETTA DO Unavailable Unavailable ANKUSH-ZELALEM, RENETTA DO Unavailable Unavailable ANKUSH-ZELALEM, RENETTA DO Unavailable Unavailable ANKUSH-ZELALEM, RENETTA DO Unavailable Unavailable ANKUSH-ZELALEM, RENETTA DO Unavailable Unavailable ANKUSH-ZELALEM, RENETTA DO Unavailable Unavailable ANKUSH-ZELALEM, RENETTA DO Unavailable Unavailable ANKUSH-ZELALEM, RENETTA DO Unavailable Unavailable ANKUSH-ZELALEM, RENETTA DO Unavailable Unavailable ANKUSH-ZELALEM, RENETTA DO Unavailable Unavailable ANKUSH-ZELALEM, RENETTA DO Unavailable Unavailable ANKUSH-ZELALEM, RENETTA DO Unavailable Unavailable ANKUSH-ZELALEM, RENETTA DO Unavailable Unavailable ANKUSH-ZELALEM, RENETTA DO Unavailable Unavailable ANKUSH-ZELALEM, RENETTA DO Unavailable Unavailable ANKUSH-ZELALEM, RENETTA DO Unavailable Unavailable ANKUSH-ZELALEM, RENETTA DO Unavailable Unavailable ANKUSH-ZELALEM, RENETTA DO Unavailable Unavailable ANKUSH-ZELALEM, RENETTA DO Unavailable Unavailable ANKUSH-ZELALEM, RENETTA DO Unavailable Unavailable ANKUSH-ZELALEM, RENETTA DO Unavailable Unavailable ANKUSH-ZELALEM, RENETTA DO Unavailable Unavailable ANKUSH-ZELALEM, RENETTA DO Unavailable Unavailable ANKUSH-ZELALEM, RENETTA DO Unavailable Unavailable ANKUSH-ZELALEM, RENETTA DO Unavailable Unavailable ANKUSH-ZELALEM, RENETTA DO Unavailable Unavailable ANKUSH-ZELALEM, RENETTA DO Unavailable Unavailable ANKUSH-ZELALEM, RENETTA DO Unavailable Unavailable ANKUSH-ZELALEM, RENETTA DO Unavailable Unavailable ANKUSH-ZELALEM, RENETTA DO Unavailable Unavailable ANKUSH-ZELALEM, RENETTA DO Unavailable Unavailable ANKUSH-ZELALEM, RENETTA DO Unavailable Unavailable ANKUSH-ZELALEM, RENETTA DO Unavailable Unavailable ANKUSH-ZELALEM, RENETTA DO Unavailable Unavailable ANKUSH-ZELALEM, RENETTA DO Unavailable Unavailable ANKUSH-ZELALEM, RENETTA DO Unavailable Unavailable ANKUSH-ZELALEM, RENETTA DO Unavailable Unavailable ANKUSH-ZELALEM, RENTETA DO Unavailable Unavailable ANKUSH-ZELALEM, RENETTA DO Unavailable Unavailable ANKUSH-ZELALEM, RENETTA DO Unavailable Unavailable ANKUSH-ZELALEM, RENETTA DO Unavailable Unavailable ANKUSH-ZELALEM, RENETTA DO Unavailable Unavailable ANKUSH-ZELALEM, RENETTA DO Unavailable Unavailable ANKUSH-ZELALEM, RENETTA DO Unavailable Unavailable ANKUSH-ZELALEM, RENETTA DO Unavailable Unavailable ANKUSH-ZELALEM, RENETTA DO Unavailable Unavailable ANKUSH-ZELALEM, RENETTA DO Unavailable Unavailable ANKUSH-ZELALEM, RENETTA DO Unavailable Unavailable ANKUSH-ZELALEM, RENETTA DO Unavailable Unavailable ANKUSH-ZELALEM, RENETTA DO Unavailable Unavailable ANKUSH-ZELALEM, RENETTA DO Unavailable Unavailable ANKUSH-ZELALEM, RENETTA DO Unavailable Unavailable ANKUSH-ZELALEM, RENETTA DO Unavailable Unavailable ANKUSH-ZELALEM, RENETTA DO Unavailable Unavailable Todd Braun MD Unavailable Unavailable FishTodd MD Unavailable Unavailable FishTodd MD Unavailable Unavailable FishTodd MD Unavailable Unavailable Todd Braun MD Unavailable Unavailable Todd Braun MD Unavailable Unavailable Todd Braun MD Unavailable Unavailable Todd Braun MD Unavailable Unavailable Todd Braun MD Unavailable Unavailable Todd Braun MD Unavailable Unavailable Todd Braun MD Unavailable Unavailable Todd Braun MD Unavailable Unavailable FishTodd MD Unavailable Unavailable FishTodd MD Unavailable Unavailable FishTodd MD Unavailable Unavailable Todd Braun MD Unavailable Unavailable Todd Braun MD Unavailable Unavailable Todd Braun MD Unavailable Unavailable Todd Braun MD Unavailable Unavailable Todd Braun MD Unavailable Unavailable Todd Braun MD Unavailable Unavailable Todd Braun MD Unavailable Unavailable Todd Braun MD Unavailable Unavailable Todd Braun MD Unavailable Unavailable Todd Braun MD Unavailable Unavailable Todd Braun MD Unavailable Unavailable Todd Braun MD Unavailable Unavailable Todd Braun MD Unavailable Unavailable FishTodd MD Unavailable Unavailable FishTodd MD Unavailable Unavailable Fish, B Rosa RITCHIE Unavailable Unavailable Fish, B Rosa RITCHIE Unavailable Unavailable Fish, B Rosa RITCHIE Unavailable Unavailable Fish, B Rosa RITCHIE Unavailable Unavailable Fish, B Rosa RITCHIE Unavailable Unavailable Fish, B Rosa RITCHIE Unavailable Unavailable Fish, B Rosa RITCHIE Unavailable Unavailable Fish, B Rosa RITCHIE Unavailable Unavailable Fish, B Rosa RITCHIE Unavailable Unavailable Fish, B Rosa RITCHIE Unavailable Unavailable Fish, B Rosa RITCHIE Unavailable Unavailable Fish, B Rosa RITCHIE Unavailable Unavailable Fish, B Rosa RITCHIE Unavailable Unavailable Fish, B Rosa RITCHIE Unavailable Unavailable Fish, B Rosa RITCHIE Unavailable Unavailable Fish, B Rosa RITCHIE Unavailable Unavailable Fish, B Rosa RITCHIE Unavailable Unavailable Fish, B Rosa RITCHIE Unavailable Unavailable Fish, B Rosa RITCHIE Unavailable Unavailable Fish, B Rosa RITCHIE Unavailable Unavailable Fish, B Rosa RITCHIE Unavailable Unavailable Fish, B Rosa RITCHIE Unavailable Unavailable Fish, B Rosa RITCHIE Unavailable Unavailable Fish, B Rosa RITCHIE Unavailable Unavailable Fish, B Rosa RITCHIE Unavailable Unavailable Fish, B Rosa RITCHIE Unavailable Unavailable Fish, B Rosa RITCHIE Unavailable Unavailable Fish, B Rosa RITCHIE Unavailable Unavailable Fish, B Rosa RITCHIE Unavailable Unavailable Fish, B Rosa RITCHIE Unavailable Unavailable Fish, B Rosa RITCHIE Unavailable Unavailable Fish, B Rosa RITCHIE Unavailable Unavailable Fish, B Rosa RITCHIE Unavailable Unavailable Fish, B Rosa RITCHIE Unavailable Unavailable Fish, B Rosa RITCHIE Unavailable Unavailable O'sera, A Reynaldo PA Unavailable Unavailable O'sera, A Reynaldo PA Unavailable Unavailable O'sera, A Reynaldo PA Unavailable Unavailable O'sera, A Reynaldo PA Unavailable Unavailable O'sera, A Reynaldo PA Unavailable Unavailable O'sera, A Reynaldo PA Unavailable Unavailable O'sera, A Reynaldo PA Unavailable Unavailable O'sera, A Reynaldo PA Unavailable Unavailable O'sera, A Reynaldo PA Unavailable Unavailable O'sera, A Reynaldo PA Unavailable Unavailable O'sera, A Reynaldo PA Unavailable Unavailable O'sera, A Reynaldo PA Unavailable Unavailable O'esra, A Reynaldo PA Unavailable Unavailable O'sera, A Reynaldo PA Unavailable Unavailable O'sera, A Reynaldo PA Unavailable Unavailable O'sera, A Reynaldo PA Unavailable Unavailable O'sera, A Reynaldo PA Unavailable Unavailable O'sera, A Reynaldo PA Unavailable Unavailable O'sera, A Reynaldo PA Unavailable Unavailable O'sera, A Reynaldo PA Unavailable Unavailable O'sera, A Reynaldo PA Unavailable Unavailable O'sera, A Reynaldo PA Unavailable Unavailable O'sera, A Reynaldo PA Unavailable Unavailable O'sera, A Reynaldo PA Unavailable Unavailable O'sera, A Reynaldo PA Unavailable Unavailable O'sera, A Reynaldo PA Unavailable Unavailable O'sera, A Reynaldo PA Unavailable Unavailable O'sera, A Reynaldo PA Unavailable Unavailable O'sera, A Reynaldo PA Unavailable Unavailable O'sera, A Reynaldo PA Unavailable Unavailable O'sera, A Reynaldo PA Unavailable Unavailable O'sera, A Reynaldo PA Unavailable Unavailable O'sera, A Reynaldo PA Unavailable Unavailable Re-disclosure Warning The records that you are about to access may contain information from federally-assisted alcohol or drug abuse programs. If such information is present, then the following federally mandated warning applies: This information has been disclosed to you from records protected by federal confidentiality rules (42 CFR part 2). The federal rules prohibit you from making any further disclosure of this information unless further disclosure is expressly permitted by the written consent of the person to whom it pertains or as otherwise permitted by 42 CFR part 2. A general authorization for the release of medical or other information is NOT sufficient for this purpose. The Federal rules restrict any use of the information to criminally investigate or prosecute any alcohol or drug abuse patient.The records that you are about to access may contain highly sensitive health information, the redisclosure of which is protected by Article 27-F of the [place] Public Health law. If you continue you may have access to information: Regarding HIV / AIDS; Provided by facilities licensed or operated by the [place] Office of Mental Health; or Provided by the [place] Office for People With Developmental Disabilities. If such information is present, then the following [place] mandated warning applies: This information has been disclosed to you from confidential records which are protected by state law. State law prohibits you from making any further disclosure of this information without the specific written consent of the person to whom it pertains, or as otherwise permitted by law. Any unauthorized further disclosure in violation of state law may result in a fine or long-term sentence or both. A general authorization for the release of medical or other information is NOT sufficient authorization for further disc losure. Family History Family Member Name Family Member Gender Family Member Status Date o f Status Description Data Source(s) Unknown Male Problem [facility] ([facility]) Unknown Female Problem [facility] ([facility] Encounters Encounter Providers Location Date Indications Data Source(s ) Outpatient Attender: Rosa Braun MD Physical Therapy 08/18 03:00:00 PM EDT [facility] ([facility]) Outpatient Attender: Rosa Braun MD Physical Therapy 03/17 04:00:00 PM EDT [facility] ([facility]) OFFICE OUTPATIENT NEW 60 MINUTES Attender: Rosa Braun MD Physi joanne Therapy 02/15/2021 02:45:00 PM EDT [facility] ([facility]) Outpatient Attender: Reynaldo FIORE [facility] 02/03/2021 03:30:00 PM EDT [facility] ([facility]) [place] [address] [address] 01/24/2021 12:00:00 AM EDT eCW1 ([facility]) [place] [address] [address] 01/21/2021 12:00:00 AM EDT eCW1 ([facility]) Outpatient Attender: Reynaldo FIORE [facility] 12/16/2020 03:00:00 PM EST [facility] ([facility]) Outpatient Attender: RENETTA OLIVERA DO [facility] 11/01/2020 02:40:00 PM EST [facility] ([facility]) Immunizations Vaccine Date Status Description Data Source(s) COVID-19 VACCINE Pfizer 07/28/2021 12:00:00 AM EDT completed [facility] Vaccine Series Complete: YESThis Data wa s Submitted to [facility] Via [employer]. COVID-19 VACCINE Pfizer 11/10/2020 12:00:00 AM EST completed [facility] Vaccine Series Complete: YESThis Data wa s Submitted to [facility] [employer]. COVID-19 VACCINE Pfizer 10/20/2020 12:00:00 AM EST completed [facility] Vaccine Series Complete: NOThis Data was Submitted to [facility] [employer]. Medications Medication Brand Name Start Date Product Form Dose Route Admi nistrative Instructions Pharmacy Instructions Status Indications Reaction Description Data Source(s) Ergocalciferol 55539 UNT Oral Capsule Ergocalciferol 03/17/2021 12:00:00 AM EDT completed [facility] ([facility] ) tramadol hydrochloride 50 MG Oral Tablet Tramadol HCL 12/16/2020 12:00:00 AM EST ORAL completed [facility] ([facility]) Insurance Providers Payer name Policy type / Coverage type Policy ID Covered alliance party ID Covered alliance party's relationship to gallardo Policy Gallardo Plan Information [id number] [employer] [place] 306/806 [id number] SP [id number] [employer] [place] 306/806 [id number] SP [id number] [place] P[place] 302/307 [id number] SP [id number] BS [place] Commercial [id number] Self [facility] Commercial [id number] Self [id number] [employer] [place] 306/806 [id number] SP [id number] [employer] [place] 306/806 [id number] SP [id number] [employer] B [id number] S [id number] Problems, Conditions, and Diagnoses Code Display Name Description Problem Type Effective Dates Data Source(s) 64409366 Essential hypertension Essential hypertension Problem 02/15/2021 12:00:00 AM EDT [facility] ([facility] ) Surgeries/Procedures Procedure Description Date Indications Data Source(s) OFFICE OUTPATIENT VISIT 25 MINUTES 08/18/2021 12:00:00 AM EDT [facility] ([facility] ) OFFICE OUTPATIENT VISIT 25 MINUTES 03/17/2021 12:00:00 AM EDT [facility] ([facility] ) Echography Soft Tissue Hand & Neck 02/15/2021 12:00:00 AM EDT [facility] ([facility] ) OFFICE OUTPATIENT NEW 60 MINUTES 02/15/2021 12:00:00 A M EDT [facility] ([facility]) Results ID Date Data Source [id number] 08/15/2021 04:17:00 PM EDT [facility] ([facility]) Name Value Range Interpretation Code Description Data Cherie rce(s) Supporting Document(s) Glucose, Fasting 89 mg/dL 70-100 [facility] ([facility]) Blood Urea Nitrogen 10 mg/dL 7-18 [facility] ([facility]) Glomerular Filtration Rate Laboratory test result [facility] ([facility]) <content>Units are mL/min/1.73 m2</content>
<content></content>
<content>Chronic Kidney Disease Staging per NKF:</content>
<content></content>
<content>Stage I & II GFR >=60 Normal to Mildly Decreased</content>
<content>Stage III GFR 30-59 Moderately Decreased</content>
<content>Stage IV GFR 15-29 Severely Decreased</content>
<content>Stage V GFR <15 Very Little GFR Left</content>
<content>ESRD GFR <15 on HAND SCREEN PRINTER</content>
<content></content> Creatinine For GFR 0.62 mg/dL 0.55-1.30 [facility] ([facility]) Sodium Level 138 meq/L 136-145 [facility] ([facility]) Potassium Serum 4.0 meq/L 3.5-5.1 [facility] ([facility]) Chloride Level 106 meq/L 98-107 [facility] ([facility]) Carbon Dioxide Level 28 meq/L 21-32 [facility] ([facility]) Calcium Level 9.6 mg/dL 8.8-10.2 [facility] ([facility]) Anion Gap 4 meq/L 8-16 [facility] ([facility]) ID Date Data Source [id number] 08/15/2021 04:17:00 PM EDT [facility] ([facility]) Name Value Range Interpretation Code Description Data Cherie rce(s) Supporting Document(s) Glucose, Fasting 89 mg/dL 70-100 Normal (applies to non-numeric results) [facility] ([facility]) Blood Urea Nitrogen 10 mg/dL 7-18 Normal (applies to non-nume mya results) [facility]) Creatinine For GFR 0.62 mg/dL 0.55-1.30 Normal (applies to non -numeric results) [facility] ([facility]) Glomerular Filtration Rate Laboratory test result Normal (applies to non- numeric results) [facility] ([facility]) <content>Units are mL/min/1.73 m2</content>
<content></content>
<content>Chronic Kidney Disease Staging per NKF:</content>
<content></content>
<content>Stage I & II GFR >=60 Normal to Mildly Decreased</content>
<content>Stage III GFR 30-59 Moderately Decreased</content>
<content>Stage IV GFR 15-29 Severely Decreased</content>
<content>Stage V GFR <15 Very Little GFR Left</content>
<content>ESRD GFR <15 on HAND SCREEN PRINTER</content>
<content></content> Sodium Level 138 meq/L 136-145 Normal (applies to non-numeric res ults) [facility] ([facility]) Chloride Level 106 meq/L 98-107 Normal (applies to non-numeric r esults) [facility] ([facility]) Potassium Serum 4.0 meq/L 3.5-5.1 Normal (applies to non-numeric results) [facility] ([facility]) Calcium Level 9.6 mg/dL 8.8-10.2 Normal (applies to non-numeric re sults) [facility] ([facility]) Carbon Dioxide Level 28 meq/L 21-32 Normal (applies to non-num virgil results) [facility] ([facility]) Anion Gap 4 meq/L 8-16 Below low normal [facility] ( [facility]) ID Date Data Source [id number] 08/15/2021 04:17:00 PM EDT [facility] Name Value Range Interpretation Code Description Data Cherie rce(s) Supporting Document(s) White Blood Count 10.5 10 4.0-10.0 Above high normal [facility] ([facility]) Red Blood Count 4.69 10 4.00-5.40 Normal (applies to non-numeric results) [facility] ([facility]) Hemoglobin 14.5 g/dL 12.0-15.5 Normal (applies to non-numeric resul ts) [facility] ([facility]) Mean Corpuscular Hemoglobin 30.9 pg 27.0-33.0 Norm al (applies to non-numeric results) [facility] ([facility]) Hematocrit 43.1 % 36.0-47.0 Normal (applies to non-numeric resul ts) [facility] ([facility]) Mean Corpuscular Volume 91.9 fl 80.0-96.0 Normal ( applies to non-numeric results) [facility]) Red Cell Distribution Width 13.2 % 11.5-14.5 Norm al (applies to non-numeric results) [facility] ([facility]) Platelet Count, Automated 399 10 150-450 Normal (applies to non-numeric results) [facility] ([facility]) Mean Corpuscular HGB Conc 33.6 g/dL 32.0-36.5 Normal (applies to non-numeric results) [facility] ([facility]) Neutrophils % 62.0 % 36.0-66.0 Normal (applies to non-numeric re sults) [facility] ([facility]) Lymph % 27.2 % 24.0-44.0 Normal (applies to non-numeric resul ts) [facility] ([facility]) [place] % 7.7 % 2.0-8.0 Normal (applies to non-numeric resul ts) [facility] ([facility]) Eos % 1.9 % 0.0-3.0 Normal (applies to non-numeric resul ts) [facility] ([facility]) Baso % 0.8 % 0.0-1.0 Normal (applies to non-numeric resul ts) [facility] ([facility]) Nucleated Red Blood Cell % 0.0 % 0-0 Normal (applies to n on-numeric results) [facility] ([facility]) Immature Granulocyte % 0.4 % 0-3.0 Normal (applies to non-n umeric results) [facility] ([facility]) Neutrophils # 6.5 10 1.5-8.5 Normal (applies to non-numeric re sults) [facility] ([facility]) Lymph # 2.9 10 1.5-5.0 Normal (applies to non-numeric resul ts) [facility] ([facility]) [place] # 0.8 10 0.0-0.8 Normal (applies to non-numeric resul ts) [facility] ([facility]) Eos # 0.2 10 0.0-0.5 Normal (applies to non-numeric resul ts) [facility] ([facility]) Baso # 0.1 10 0.0-0.2 Normal (applies to non-numeric resul ts) [facility] ([facility]) ID Date Data Source [id number] 08/15/2021 04:17:00 PM EDT [facility] ([facility]) Name Value Range Interpretation Code Description Data Cherie rce(s) Supporting Document(s) Blood Urea Nitrogen 10 mg/dL 7-18 Normal (applies to non-nume mya results) [facility] ([facility]) Glucose, Fasting 89 mg/dL 70-100 Normal (applies to non-numeric results) [facility] ([facility]) Glomerular Filtration Rate Laboratory test result Normal (applies to non- numeric results) [facility] ([facility]) <content>Units are mL/min/1.73 m2</content>
<content></content>
<content>Chronic Kidney Disease Staging per NKF:</content>
<content></content>
<content>Stage I & II GFR >=60 Normal to Mildly Decreased</content>
<content>Stage III GFR 30-59 Moderately Decreased</content>
<content>Stage IV GFR 15-29 Severely Decreased</content>
<content>Stage V GFR <15 Very Little GFR Left</content>
<content>ESRD GFR <15 on HAND SCREEN PRINTER</content>
<content></content> Creatinine For GFR 0.61 mg/dL 0.55-1.30 Normal (applies to non -numeric results) [facility] ([facility]) Sodium Level 139 meq/L 136-145 Normal (applies to non-numeric res ults) [facility] ([facility]) Potassium Serum 4.0 meq/L 3.5-5.1 Normal (applies to non-numeric results) [facility] ([facility]) Chloride Level 106 meq/L 98-107 Normal (applies to non-numeric r esults) [facility] ([facility]) Anion Gap 5 meq/L 8-16 Below low normal [facility] ( [facility]) Carbon Dioxide Level 28 meq/L 21-32 Normal (applies to non-num virgil results) [facility] ([facility]) Alt/SGPT 20 U/L 12-78 Normal (applies to non-numeric resul ts) [facility] ([facility]) Ast/Sgot 11 U/L 7-37 Normal (applies to non-numeric resul ts) [facility] ([facility]) Calcium Level 9.7 mg/dL 8.8-10.2 Normal (applies to non-numeric re sults) [facility] ([facility]) Total Protein 7.3 GM/DL 6.4-8.2 Normal (applies to non-numeric re sults) [facility] ([facility]) Bilirubin,Total 0.2 mg/dL 0.2-1.0 Normal (applies to non-numeric results) [facility] ([facility]) Alkaline Phosphatase 86 U/L 45-117 Normal (applies to non-num virgil results) [facility] ([facility]) Albumin 4.0 GM/DL 3.2-5.2 Normal (applies to non-numeric resul ts) [facility] ([facility]) Albumin/Globulin Ratio 1.2 1.2-2.2 Normal (applies to non-n umeric results) [facility] ([facility]) ID Date Data Source [id number] 05/10/2021 03:32:00 PM EDT [facility] ([facility] Name Value Range Interpretation Code Description Data Cherie rce(s) Supporting Document(s) Glucose, Fasting 95 mg/dL 70-100 [facility] ([facility]) Blood Urea Nitrogen 15 mg/dL 7-18 [facility] ([facility]) Glomerular Filtration Rate Laboratory test result [facility] ([facility]) <content>Units are mL/min/1.73 m2</content>
<content></content>
<content>Chronic Kidney Disease Staging per NKF:</content>
<content></content>
<content>Stage I & II GFR >=60 Normal to Mildly Decreased</content>
<content>Stage III GFR 30-59 Moderately Decreased</content>
<content>Stage IV GFR 15-29 Severely Decreased</content>
<content>Stage V GFR <15 Very Little GFR Left</content>
<content>ESRD GFR <15 on HAND SCREEN PRINTER</content>
<content></content> Creatinine For GFR 0.65 mg/dL 0.55-1.30 [facility] ([facility]) Potassium Serum 4.0 meq/L 3.5-5.1 [facility] ([facility]) Chloride Level 106 meq/L 98-107 [facility] ([facility]) Sodium Level 138 meq/L 136-145 [facility] ([facility] Calcium Level 9.2 mg/dL 8.8-10.2 [facility] ([facility]) Carbon Dioxide Level 27 meq/L 21-32 [facility] ([facility]) Anion Gap 5 meq/L 8-16 [facility] ([facility] ID Date Data Source [id number] 02/18/2021 10:32:00 AM EDT [facility] ([facility]) Name Value Range Interpretation Code Description Data Cherie rce(s) Supporting Document(s) Calcidiol [Mass/volume] in Serum or Plasma 23.2 ng/mL 30.0-100.0 [facility] ([facility]) ID Date Data Source [id number] 12/21/2020 12:00:00 AM EST [facility]y Imaging Renetta Ankush Prasad DO Patient Name: JUAN LUIS [id number] Date of : 1955 1 Date of Exam: 12/21/2020NataliaTAMIKA tejeda [id number]#: Fax: [id number] EXAM: CHEST (2 VIEW) X-RAYCLINICAL INFORMATION: Pain.Comparison 05/05/2019.Two views.Lungs are clear with no acute infiltrate. Heart and mediastinum areunremarkable and unchanged. There are very mild degenerative ch anges ofthe thoracic spine.IMPRESSION:No active pulmonary disease.TY Sena/John you for referring QUYNH GAMBOA to our office. Electronically Signed - JEFFERY VALLE MD 12/21/20 17:39 Name Value Range Interpretation Code Description Data Cherie rce(s) Supporting Document(s) ID Date Data Source [id number] 12/21/2020 12:00:00 AM EST [facility] ology Imaging Renetta Rogerseano Zelalem DO Patient Name: JUAN LUIS [id number] Date of : 1955 1 Date of Exam: 12/21/2020BenjaminTAMIKA ardon [id number]#: Fax: [phone] EXAM: THORACIC SPINE (3 VIEW) XRAYCLINICAL INFORMATION: Pain.Three AP and lateral views of the thoracic spine are performed.There is no compression fracture or malalignment with normal thoracickyphosis. Minor disc space narrowing is seen at several mid-thoracic disclevels. There is evidence of prior anterior cervical diskectomy and fusionin the lower cervical spine. Posterior elements are intact.IMPRESSION:Minor degenerative changes with no fracture or dislocation.TY Sena/John you for referring QUYNH GAMBOA to our office. Electronically Signed - JEFFERY VALLE MD 12/21/20 17:39 Name Value Range Interpretation Code Description Data Cherie rce(s) Supporting Document(s) ID Date Data Source [id number] 11/05/2020 11:25:00 AM EST [facility] ([facility] Name Value Range Interpretation Code Description Data Cherie rce(s) Supporting Document(s) Thyroid Stimulating Hormone 0.454 uIU/ML 0.358-3.740 Norm al (applies to non- numeric results) [facility] ([facility]) Free T4 1.14 ng/dL 0.76-1.46 Normal (applies to non-numeric resul ts) [facility] ([facility]) ID Date Data Source [id number] 11/05/2020 11:25:00 AM EST [facility] ([facility]) Name Value Range Interpretation Code Description Data Cherie rce(s) Supporting Document(s) Triglycerides Level 93 mg/dL Normal (applies to non-nume mya results) [facility] ([facility]) HDL Cholesterol 46 mg/dL Normal (applies to non-numeric results) [facility] ([facility]) Cholesterol Level 154 mg/dL Normal (applies to non-numeri c results) [facility] ([facility]) Non-HDL-C 108 mg/dL Normal (applies to non-numeric resul ts) [facility] ([facility]) LDL Cholesterol 89 mg/dL Normal (applies to non-numeric results) [facility]) Cholesterol Risk Ratio 3.347 Normal (applies to non-n umeric results) [facility] ([facility]) ID Date Data Source [id number] 11/05/2020 11:25:00 AM EST [facility] ([facility]) Name Value Range Interpretation Code Description Data Cherie rce(s) Supporting Document(s) Hemoglobin A1c 5.3 % Normal (applies to non-numeric r esults) [facility] ([facility]) <content>REFERENCE RANGES:</content><br/ ><content></content>
<content><=5.6% NORMAL</content>
<content>5.7-6.4% SUGGESTS IMPAIRED GLUCOSE METABOLISM/PREDIABETIC</content>
<content>>= 6.5% ABNORMAL</content>
<content></content> Estimated Average Glucose 105 mg/dL 60-110 Normal (applies to non-numeric results) [facility] ([facility]) ID Date Data Source [id number] 11/05/2020 11:25:00 AM EST [facility] ([facility]) Name Value Range Interpretation Code Description Data Cherie rce(s) Supporting Document(s) Red Blood Count 4.60 10 4.00-5.40 Normal (applies to non-numeric results) [facility] ([facility]) White Blood Count 8.1 10 4.0-10.0 Normal (applies to non-numeri c results) [facility] ([facility]) Mean Corpuscular Volume 90.7 fl 80.0-96.0 Normal ( applies to non-numeric results) [facility] ([facility]) Hemoglobin 13.9 g/dL 12.0-15.5 Normal (applies to non-numeric resul ts) [facility] ([facility]) Hematocrit 41.7 % 36.0-47.0 Normal (applies to non-numeric resul ts) [facility] ([facility]) Mean Corpuscular HGB Conc 33.3 g/dL 32.0-36.5 Normal (applies to non-numeric results) [facility] ([facility]) Mean Corpuscular Hemoglobin 30.2 pg 27.0-33.0 Norm al (applies to non-numeric results) [facility] ([facility]) Neutrophils % 55.2 % 36.0-66.0 Normal (applies to non-numeric re sults) [facility] ([facility]) Red Cell Distribution Width 12.7 % 11.5-14.5 Norm al (applies to non-numeric results) [facility] ([facility]) Platelet Count, Automated 361 10 150-450 Normal (applies to non-numeric results) [facility] ([facility]) Lymph % 33.6 % 24.0-44.0 Normal (applies to non-numeric resul ts) [facility] ([facility]) [place] % 8.2 % 0.0-5.0 Above high normal [facility] ([facility]) Baso % 1.1 % 0.0-1.0 Above high normal [facility] ([facility]) Eos % 1.5 % 0.0-3.0 Normal (applies to non-numeric resul ts) [facility] ([facility]) Immature Granulocyte % 0.4 % 0-3.0 Normal (applies to non-n umeric results) [facility] ([facility]) Nucleated Red Blood Cell % 0.0 % 0-0 Normal (applies to n on-numeric results) [facility] ([facility]) Neutrophils # 4.5 10 1.5-8.5 Normal (applies to non-numeric re sults) [facility] ([facility]) Lymph # 2.7 10 1.5-5.0 Normal (applies to non-numeric resul ts) [facility] ([facility]) [place] # 0.7 10 0.0-0.8 Normal (applies to non-numeric resul ts) [facility] ([facility]) Baso # 0.1 10 0.0-0.2 Normal (applies to non-numeric resul ts) [facility] ([facility]) Eos # 0.1 10 0.0-0.5 Normal (applies to non-numeric resul ts) [facility] ([facility]) ID Date Data Source [id number] 11/05/2020 11:25:00 AM EST [facility] ([facility]) Name Value Range Interpretation Code Description Data Cherie rce(s) Supporting Document(s) Glucose, Fasting 104 mg/dL 70-100 Above high normal M [facility] ([facility]) Blood Urea Nitrogen 14 mg/dL 7-18 Normal (applies to non-nume mya results) [facility] ([facility]) Creatinine For GFR 0.87 mg/dL 0.55-1.30 Normal (applies to non -numeric results) [facility] ([facility]) Glomerular Filtration Rate Laboratory test result Normal (applies to non- numeric results) [facility] ([facility]) <content>Units are mL/min/1.73 m2</content>
<content></content>
<content>Chronic Kidney Disease Staging per NKF:</content>
<content></content>
<content>Stage I & II GFR >=60 Normal to Mildly Decreased</content>
<content>Stage III GFR 30- 59 Moderately Decreased</content>
<content>Stage IV GFR 15-29 Severely Decreased</content>
<content>Stage V GFR <15 Very Little GFR Left</content>
<content>ESRD GFR <15 on HAND SCREEN PRINTER</content>
<content></content> Sodium Level 138 meq/L 136-145 Normal (applies to non-numeric res ults) [facility] ([facility]) Chloride Level 105 meq/L 98-107 Normal (applies to non-numeric r esults) [facility] ([facility]) Potassium Serum 3.5 meq/L 3.5-5.1 Normal (applies to non-numeric results) [facility] ([facility]) Carbon Dioxide Level 28 meq/L 21-32 Normal (applies to non-num virgil results) [facility] ([facility]) Anion Gap 5 meq/L 8-16 Below low normal [facility] ( [facility]) Calcium Level 9.6 mg/dL 8.8-10.2 Normal (applies to non-numeric re sults) [facility] ([facility]) Alt/SGPT 26 U/L 12-78 Normal (applies to non-numeric resul ts) [facility] ([facility]) Ast/Sgot 14 U/L 7-37 Normal (applies to non-numeric resul ts) [facility] ([facility]) Alkaline Phosphatase 93 U/L 45-117 Normal (applies to non-num virgil results) [facility] ([facility]) Bilirubin,Total 0.5 mg/dL 0.2-1.0 Normal (applies to non-numeric results) [facility] ([facility]) Albumin 4.2 GM/DL 3.2-5.2 Normal (applies to non-numeric resul ts) [facility] ([facility]) Total Protein 7.1 GM/DL 6.4-8.2 Normal (applies to non-numeric re sults) [facility] ([facility]) Albumin/Globulin Ratio 1.4 1.2-2.2 Normal (applies to non-n umeric results) [facility] ([facility]) Procedure Social History Code Duration Value Status Description Data Source(s ) Smoking 01/24/2021 12:00:00 AM EDT Current Smoker completed Curre nt Smoker eCW1 ([facility]) Smoking 01/24/2021 12:00:00 AM EDT Current Smoker completed Curre nt Smoker eCW1 ([facility]) Vital Signs ID Date Data Source UNK Name Value Range Interpretation Code Description Data Source(s) Systolic blood pressure 118 mm[Hg] 118 mm[Hg] M [facility] ([facility] Diastolic blood pressure 68 mm[Hg] 68 mm[Hg] [facility] ([facility] ) Heart rate 88 /min 88 /min [facility] ([facility] ) Body height 63.8 [in_i] 63.8 [in_i] [facility] ([facility] 5'3.80" Body weight 172.00 [lb_av] 172.00 [lb_av] MEDEN T ([facility] ) Body mass index (BMI) [Ratio] 29.7 kg/m2 29.7 k g/m2 [facility] ([facility] ) Oxygen saturation in Arterial blood by Pulse oximetry 94 % 94 % [facility] ([facility] ) Body height 63.8 [in_i] 63.8 [in_i] [facility] ([facility] 5'3.80" Body weight 172.00 [lb_av] 172.00 [lb_av] [facility]EN T ([facility] ) Systolic blood pressure 118 mm[Hg] 118 mm[Hg] M [facility] ([facility]) Diastolic blood pressure 76 mm[Hg] 76 mm[Hg] [facility] ([facility] ) Heart rate 104 /min 104 /min [facility] ([facility] Body temperature 97.1 [degF] 97.1 [degF] [facility] ([facility] Body mass index (BMI) [Ratio] 29.7 kg/m2 29.7 k g/m2 [facility] ([facility] ) Oxygen saturation in Arterial blood by Pulse oximetry 94 % 94 % [facility] ([facility] ) Body mass index (BMI) [Ratio] 29.7 kg/m2 29.7 k g/m2 [facility] ([facility] ) Systolic blood pressure 132 mm[Hg] 132 mm[Hg] M ED[facility] ([facility] ) Diastolic blood pressure 80 mm[Hg] 80 mm[Hg] [facility] ([facility] ) Heart rate 91 /min 91 /min [facility] ([facility] ) Body temperature 97.4 [degF] 97.4 [degF] [facility] ([facility] ) Body height 63.8 [in_i] 63.8 [in_i] [facility] ([facility] 5'3.80" Body weight 172.12 [lb_av] 172.12 [lb_av] MEDEN T ([facility] ) Oxygen saturation in Arterial blood by Pulse oximetry 98 % 98 % [facility] ([facility] ) Systolic blood pressure 132 mm[Hg] 132 mm[Hg] M EDENT ([facility]) Diastolic blood pressure 88 mm[Hg] 88 mm[Hg] [facility] ([facility]) Body height 64.8 [in_i] 64.8 [in_i] [facility] ([facility]) 5'4.80" Body weight 172.00 [lb_av] 172.00 [lb_av] MEDEN T ([facility]) Body mass index (BMI) [Ratio] 28.8 kg/m2 28.8 k g/m2 [facility] ([facility]) Heart rate 91 /min 91 /min [facility] ([facility]) Respiratory rate 20 /min 20 /min [facility] ( [facility]) Body temperature 98.2 [degF] 98.2 [degF] [facility] ([facility]) Oxygen saturation in Arterial blood by Pulse oximetry 95 % 95 % [facility] ([facility]) [place] body weight 120 [lb_av] 120 [lb_av] MEDEN T ([facility]) Body weight 174.6 [lb_av] 174.6 [lb_av] eCW1 ([facility]) Body height 55 [in_i] 55 [in_i] eCW1 ([facility]) Body mass index (BMI) [Ratio] 40.58 kg/m2 40.58 kg/m2 W1 ([facility]) Heart rate 90 /min 90 /min eCW1 ([facility]) Respiratory rate 18 /min 18 /min eCW1 ([facility]) Body temperature 96.0 [degF] 96.0 [degF] eCW1 ( [facility]) Systolic blood pressure 126 mm[Hg] 126 mm[Hg] e CW1 ([facility]) Diastolic blood pressure 62 mm[Hg] 62 mm[Hg] eCW1 ([facility]) Respiratory rate 14 /min 14 /min [facility] ( [facility]) Body mass index (BMI) [Ratio] 29.7 kg/m2 29.7 k g/m2 [facility] ([facility]) Body temperature 97.6 [degF] 97.6 [degF] [facility] ([facility]) Heart rate 78 /min 78 /min [facility] ([facility]) Oxygen saturation in Arterial blood by Pulse oximetry 98 % 98 % [facility] ([facility]) [place] body weight 120 [lb_av] 120 [lb_av] MEDEN T ([facility]) Systolic blood pressure 150 mm[Hg] 150 mm[Hg] M CRISTIANO ([facility]) Diastolic blood pressure 88 mm[Hg] 88 mm[Hg] [facility] ([facility]) Body height 64.8 [in_i] 64.8 [in_i] [facility]) 5'4.80" Body weight 177.38 [lb_av] 177.38 [lb_av] MEDEN T ([facility]) Diastolic blood pressure 68 mm[Hg] 68 mm[Hg] [facility] ([facility]) Oxygen saturation in Arterial blood by Pulse oximetry 95 % 95 % [facility] ([facility]) Body height 64.8 [in_i] 64.8 [in_i] [facility] ([facility]) 5'4.80" [place] body weight 120 [lb_av] 120 [lb_av] MEDEN T ([facility]) Body weight 179.00 [lb_av] 179.00 [lb_av] MEDEN T ([facility]) Body mass index (BMI) [Ratio] 30.0 kg/m2 30.0 k g/m2 [facility] ([facility]) Systolic blood pressure 130 mm[Hg] 130 mm[Hg] M CRISTIANO ([facility]) Heart rate 92 /min 92 /min [facility] ([facility]) Respiratory rate 18 /min 18 /min [facility] ( [facility]) Body temperature 98.4 [degF] 98.4 [degF] [facility] ([facility])
--- OUTSIDE RECORDS SUMMARY | 2021-09-06 21:38 | CCD | Continuity of Care Document ---
Author Organization Unknown Address Unknown Phone Unavailable Care Team Providers Care Lead Relay Tester Name Role Phone Renetta Blair D.O. AUTM [phone] Slick Ruano MD [facility] [phone] Rosa Braun M.D. [facility] [phone] Kenisha Erwin M.D. AUTM [phone] Problems Active Problems Provider Date Gastroesophageal reflux [...] 1 by mouth every day 90tabs I10 Ervin PrinceOKun 12/23 Breo Ellipta 200-25mcg/Inh Aerosol to be [...] CPT Code Status Date Vaccine Lot # [id number] Given 04/26/2020 Pneumococcal Con jugate Vaccine 13 Valent For Intramuscular Use [id number] Vital Signs Date Vital Result Comment 02/03/2021 3:35pm BP Systolic 132 mmHg BP Diastolic 88 mmHg Height 64.8 inches 5'4.80" Weight 172.00 lb BMI (Body Mass Index) 28.8 kg/m2 Heart Rate 91 /min Respiratory Rate 20 /min Body Temperature 98.2 F O2 % BldC Oximetry 95 % Bunch Body Weight 120 lb 12/16/2020 4:05pm BP Systolic 150 mmHg BP Diastolic 88 mmHg Height 64.8 inches 5'4.80" Weight 177.38 lb BMI (Body Mass Index) 29.7 kg/m2 Heart Rate 78 /min Respiratory Rate 14 /min Body Temperature 97.6 F O2 % BldC Oximetry 98 % Bunch Body Weight 120 lb Results Test Acquired Date Facility Test Result H/L Range Note Comprehensive Metabolic Profil 08/15/2021 [facility] Outpa tient Testing (Registration) [address] [place] [address] [phone] Glucose, Fasting 89 mg/dL Normal 70-100 Blood [...] 1.2 Normal 1.2-2.2 CBC With Differential 08/15/2021 [facility] Outpatient Milena ting (Registration) [address] [place] [address] [phone] White Blood Count 10.5 10 High 4.0-10.0 [...] 36.0-66.0 Lymph % 27.2 % Normal 24.0-44.0 [place] % 7.7 % Normal 2.0-8.0 Eos % 1.9 % Normal 0.0-3.0 Baso % 0.8 % Normal 0.0-1.0 Immature Granulocyte % 0.4 % Normal 0-3.0 Nucleated Red Blood Cell % 0.0 % Normal 0-0 Neutrophils # 6.5 10 Normal 1.5-8.5 Lymph # 2.9 10 Normal 1.5-5.0 [place] # 0.8 10 Normal 0.0-0.8 Eos # 0.2 10 Normal 0.0-0.5 Baso # 0.1 10 Normal 0.0-0.2 Basic Metabolic Profile 08/15/2021 [facility] Outpatient T esting (Registration) [address] [place] [phone] Glucose, Fasting 89 mg/dL Normal 70-100 Blood [...] Little GFR Left ESRD GFR <15 on PET GROOMER 2 Units are mL/min/1.73 m2 Chronic Kidney Disease Staging per NKF: Stage I & II GFR >=60 Normal to Mildly Decreased Stage III GFR 30-59 Moderately Decreased Stage IV GFR 15-29 Severely Decreased Stage V GFR <15 Very Little GFR Left ESRD GFR <15 on PET GROOMER Procedures Description No Information Available Medical Devices [...] need for further imaging. thank you. [facility] Neurology [facility] [place], [place] [address] [phone]
--- NOTE | 2021-09-06 23:50 | REPVR ---
PROCEDURE INFORMATION: Exam: CT Head Without Contrast Exam date and time: 09/06/2021 11:00 PM Age: 66 years old Clinical indication: Injury or trauma; Fall; Blunt trauma (contusions or hematomas) TECHNIQUE: Imaging protocol: Computed tomography of the head without contrast. Radiation optimization: All CT scans at this facility use at least one of these dose optimization techniques: automated exposure control; mA and/or kV adjustment per patient size (includes targeted exams where dose is matched to clinical indication); or iterative reconstruction. COMPARISON: No relevant prior studies available. FINDINGS: Brain: No intracranial mass, mass effect or midline shift. No acute intracranial hemorrhage. No CT evidence of acute cortical infarct. Ventricles, cisterns, and sulci are normal in size for age. Paranasal sinuses: Imaged paranasal sinuses are normally aerated. Mastoid air cells: Mastoid air cells and middle ear structures are normally aerated. Orbital cavity: Imaged orbits are unremarkable. Bones/joints: No calvarial fracture or destructive process. Soft tissues: No focal extracranial soft tissue swelling. IMPRESSION: No acute or concerning focal intracranial abnormality. Electronically signed by: Armando Guzmán On 09/06/2021 23:50:04 PM
--- OUTSIDE RECORDS SUMMARY | 2021-09-07 00:56 | CCD ---
Author Author [facility] Organization [facility] Address Unknown Phone Unavailable Care Team Providers Care Surgical Coordinator Name Role Phone ANKUSH-ZELALEM, RENETTA DO Unavailable [...] Unavailable Unavailable ANKUSH-ZELALEM, RENETTA DO Unavailable Unavailable ANKUSH-ZEALLEM, RENETTA DO Unavailable Unavailable ANKUSH-ZELALEM, RNEETTA DO Unavailable Unavailable ANKUSH-ZELALEM, RENETTA DO Unavailable [...] Rosa RITCHIE Unavailable Unavailable Fish, B Rosa IRTCHIE Unavailable Unavailable Fish, B Rosa RITCHIE Unavailable [...] Unavailable O'sera, A Reynaldo PA Unavailable Unavailable O'srea, A Reynaldo PA Unavailable Unavailable Re-disclosure Warning [...] is protected by Article 27-F of the [facility] Public Health law. If you continue you may have access to information: Regarding HIV / AIDS; Provided by facilities licensed or operated by the [facility] Office of Mental Health; or Provided by the [facility] Office for People With Developmental Disabilities. If such information is present, then the following [facility] mandated warning applies: This information has been [...] law may result in a fine or shelter sentence or both. A general authorization for the release of medical or other information is NOT sufficient authorization for further disc losure. Family History Family Member Name Family Member Gender Family Member Status Date o f Status Description Data Source(s) Unknown Male Problem [facility] ([facility]) Unknown Female Problem [facility] ([facility] Encounters Encounter Providers Location Date Indications Data Source(s ) Outpatient Attender: Rosa Braun MD Physical Therapy 08/18 03:00:00 PM EDT [facility] ([facility]) Outpatient Attender: Rosa Braun MD Physical Therapy 03/17 04:00:00 PM EDT [facility] ([facility]) OFFICE OUTPATIENT NEW 60 MINUTES Attender: Rosa Braun MD Physi joanne Therapy 02/15/2021 02:45:00 PM EDT [facility] ([facility]) Outpatient Attender: Reynaldo FIORE [facility] 02/03/2021 03:30:00 PM EDT [facility] ([facility]) [place] [address] [address] 01/24/2021 12:00:00 AM EDT [facility]1 ([facility]) [place] [address] [address] 01/21/2021 12:00:00 AM EDT eCW1 ([facility]) Outpatient Attender: Reynaldo FIORE [facility] 12/16/2020 03:00:00 PM EST [facility] ([facility]) Outpatient Attender: RENETTA OLIVERA DO [facility] 11/01/2020 02:40:00 PM EST [facility] ([facility]) Immunizations Vaccine Date Status Description Data Source(s) COVID-19 VACCINE Pfizer 07/28/2021 12:00:00 AM EDT completed [facility] Vaccine Series Complete: YESThis Data wa s Submitted to [facility] [employer]. COVID-19 VACCINE Pfizer 11/10/2020 12:00:00 AM EST completed [facility] Vaccine Series Complete: YESThis Data wa s Submitted to [facility] [employer]. COVID-19 VACCINE Pfizer 10/20/2020 12:00:00 AM EST completed [facility] Vaccine Series Complete: NOThis Data was Submitted to [facility] [employer]. Medications Medication Brand Name Start Date Product Form Dose Route Admi nistrative Instructions Pharmacy Instructions Status Indications Reaction Description Data Source(s) Ergocalciferol 99110 UNT Oral Capsule Ergocalciferol 03/17/2021 12:00:00 AM EDT completed [facility] ([facility] tramadol hydrochloride 50 MG Oral Tablet Tramadol HCL 12/16/2020 12:00:00 AM EST ORAL completed [facility] ([facility]) Insurance Providers Payer name Policy type / Coverage type Policy ID Covered constitution party ID Covered constitution party's relationship to gallardo Policy Gallardo Plan Information [id number] [employer] [place] 306/806 [id number] SP [id number] [employer] [place] 306/806 [id number] SP [id number] [place] 302/307 [id number] SP [id number] BS [place] Commercial [id number] Self [facility] U/[employer] Commercial [id number] Self [id number] [employer] [place] 306/806 [id number] SP [id number] [employer] [place] 306/806 [id number] SP [id number] [employer] BCBS B [id number] S [id number] Problems, Conditions, and Diagnoses Code Display Name Description Problem Type Effective Dates Data Source(s) 70545391 Essential hypertension Essential hypertension Problem 02/15/2021 12:00:00 AM EDT [facility] ([facility] ) Surgeries/Procedures Procedure Description Date Indications Data Source(s) OFFICE OUTPATIENT VISIT 25 MINUTES 08/18/2021 12:00:00 AM EDT [facility] ([facility] ) OFFICE OUTPATIENT VISIT 25 MINUTES 03/17/2021 12:00:00 AM EDT [facility] ([facility] ) Echography Soft Tissue Hand & Neck 02/15/2021 12:00:00 AM EDT [facility] ([facility] ) OFFICE OUTPATIENT NEW 60 MINUTES 02/15/2021 12:00:00 A M EDT [facility] ([facility]) Results ID Date Data Source [id number] 08/15/2021 04:17:00 PM EDT [facility] ([facility]) Name Value Range Interpretation Code Description Data Cherie rce(s) Supporting Document(s) Glucose, Fasting 89 mg/dL 70-100 [facility] ([facility]) Blood Urea Nitrogen 10 mg/dL 7-18 [facility] ([facility]) Glomerular Filtration Rate Laboratory test result [facility] ([facility]) <content>Units are mL/min/1.73 m2</content>
<content></content>
<content>Chronic Kidney Disease Staging per NKF:</content>
<content></content>
<content>Stage I & II GFR >=60 Normal to Mildly Decreased</content>
<content>Stage III GFR 30-59 Moderately Decreased</content>
<content>Stage IV GFR 15-29 Severely Decreased</content>
<content>Stage V GFR <15 Very Little GFR Left</content>
<content>ESRD GFR <15 on CARDIAC NURSE SPECIALIST</content>
<content></content> Creatinine For GFR 0.62 mg/dL 0.55-1.30 [facility] ([facility]) Sodium Level 138 meq/L 136-145 [facility] ([facility]) Potassium Serum 4.0 meq/L 3.5-5.1 [facility] ([facility]) Chloride Level 106 meq/L 98-107 [facility] Carbon Dioxide Level 28 meq/L 21-32 [facility] ([facility]) Calcium Level 9.6 mg/dL 8.8-10.2 [facility] ([facility]) Anion Gap 4 meq/L 8-16 [facility] ([facility]) ID Date Data Source [id number] 08/15/2021 04:17:00 PM EDT [facility] ([facility]) Name Value Range Interpretation Code Description Data Cherie rce(s) Supporting Document(s) Glucose, Fasting 89 mg/dL 70-100 Normal (applies to non-numeric results) [facility] ([facility]) Blood Urea Nitrogen 10 mg/dL 7-18 Normal (applies to non-nume mya results) [facility] Creatinine For GFR 0.62 mg/dL 0.55-1.30 Normal (applies to non -numeric results) [facility] ([facility]) Glomerular Filtration Rate Laboratory test result Normal (applies to non- numeric results) [facility] ([facility]) <content>Units are mL/min/1.73 m2</content>
<content></content>
<content>Chronic Kidney Disease Staging per NKF:</content>
<content></content>
<content>Stage I & II GFR >=60 Normal to Mildly Decreased</content>
<content>Stage III GFR 30-59 Moderately Decreased</content>
<content>Stage IV GFR 15-29 Severely Decreased</content>
<content>Stage V GFR <15 Very Little GFR Left</content>
<content>ESRD GFR <15 on CARDIAC NURSE SPECIALIST</content>
<content></content> Sodium Level 138 meq/L 136-145 Normal (applies to non-numeric res ults) [facility] ([facility]) Chloride Level 106 meq/L 98-107 Normal (applies to non-numeric r esults) [facility] ([facility]) Potassium Serum 4.0 meq/L 3.5-5.1 Normal (applies to non-numeric results) [facility] ([facility]) Calcium Level 9.6 mg/dL 8.8-10.2 Normal (applies to non-numeric re sults) [facility] ([facility]) Carbon Dioxide Level 28 meq/L 21-32 Normal (applies to non-num virgil results) [facility] ([facility]) Anion Gap 4 meq/L 8-16 Below low normal [facility] ( [facility]) ID Date Data Source [id number] 08/15/2021 04:17:00 PM EDT [facility]) Name Value Range Interpretation Code Description Data Cherie rce(s) Supporting Document(s) White Blood Count 10.5 10 4.0-10.0 Above high normal [facility] ([facility]) Red Blood Count 4.69 10 4.00-5.40 Normal (applies to non-numeric results) [facility] ([facility]) Hemoglobin 14.5 g/dL 12.0-15.5 Normal (applies to non-numeric resul ts) [facility] ([facility]) Mean Corpuscular Hemoglobin 30.9 pg 27.0-33.0 Norm al (applies to non-numeric results) [facility] ([facility]) Hematocrit 43.1 % 36.0-47.0 Normal (applies to non-numeric resul ts) [facility] ([facility]) Mean Corpuscular Volume 91.9 fl 80.0-96.0 Normal ( applies to non-numeric results) [facility]) Red Cell Distribution Width 13.2 % 11.5-14.5 Norm al (applies to non-numeric results) [facility] ([facility]) Platelet Count, Automated 399 10 150-450 Normal (applies to non-numeric results) [facility] ([facility]) Mean Corpuscular HGB Conc 33.6 g/dL 32.0-36.5 Normal (applies to non-numeric results) [facility] ([facility]) Neutrophils % 62.0 % 36.0-66.0 Normal (applies to non-numeric re sults) [facility] ([facility]) Lymph % 27.2 % 24.0-44.0 Normal (applies to non-numeric resul ts) [facility] ([facility]) Dickens % 7.7 % 2.0-8.0 Normal (applies to non-numeric resul ts) [facility] ([facility]) Eos % 1.9 % 0.0-3.0 Normal (applies to non-numeric resul ts) [facility] ([facility]) Baso % 0.8 % 0.0-1.0 Normal (applies to non-numeric resul ts) [facility] ([facility]) Nucleated Red Blood Cell % 0.0 % 0-0 Normal (applies to n on-numeric results) [facility] ([facility]) Immature Granulocyte % 0.4 % 0-3.0 Normal (applies to non-n umeric results) [facility] ([facility]) Neutrophils # 6.5 10 1.5-8.5 Normal (applies to non-numeric re sults) [facility] ([facility]) Lymph # 2.9 10 1.5-5.0 Normal (applies to non-numeric resul ts) [facility] ([facility]) Dickens # 0.8 10 0.0-0.8 Normal (applies to non-numeric resul ts) [facility] ([facility]) Eos # 0.2 10 0.0-0.5 Normal (applies to non-numeric resul ts) [facility] ([facility]) Baso # 0.1 10 0.0-0.2 Normal (applies to non-numeric resul ts) [facility] ([facility]) ID Date Data Source [id number] 08/15/2021 04:17:00 PM EDT [facility] ([facility]) Name Value Range Interpretation Code Description Data Cherie rce(s) Supporting Document(s) Blood Urea Nitrogen 10 mg/dL 7-18 Normal (applies to non-nume mya results) [facility]) Glucose, Fasting 89 mg/dL 70-100 Normal (applies to non-numeric results) [facility]) Glomerular Filtration Rate Laboratory test result Normal (applies to non- numeric results) [facility]) <content>Units are mL/min/1.73 m2</content>
<content></content>
<content>Chronic Kidney Disease Staging per NKF:</content>
<content></content>
<content>Stage I & II GFR >=60 Normal to Mildly Decreased</content>
<content>Stage III GFR 30-59 Moderately Decreased</content>
<content>Stage IV GFR 15-29 Severely Decreased</content>
<content>Stage V GFR <15 Very Little GFR Left</content>
<content>ESRD GFR <15 on CARDIAC NURSE SPECIALIST</content>
<content></content> Creatinine For GFR 0.61 mg/dL 0.55-1.30 Normal (applies to non -numeric results) [facility] ([facility]) Sodium Level 139 meq/L 136-145 Normal (applies to non-numeric res ults) [facility] ([facility]) Potassium Serum 4.0 meq/L 3.5-5.1 Normal (applies to non-numeric results) [facility] ([facility]) Chloride Level 106 meq/L 98-107 Normal (applies to non-numeric r esults) [facility] ([facility]) Anion Gap 5 meq/L 8-16 Below low normal [facility] ( [facility]) Carbon Dioxide Level 28 meq/L 21-32 Normal (applies to non-num virgil results) [facility] ([facility]) Alt/SGPT 20 U/L 12-78 Normal (applies to non-numeric resul ts) [facility] ([facility]) Ast/Sgot 11 U/L 7-37 Normal (applies to non-numeric resul ts) [facility] ([facility]) Calcium Level 9.7 mg/dL 8.8-10.2 Normal (applies to non-numeric re sults) [facility] ([facility]) Total Protein 7.3 GM/DL 6.4-8.2 Normal (applies to non-numeric re sults) [facility] ([facility]) Bilirubin,Total 0.2 mg/dL 0.2-1.0 Normal (applies to non-numeric results) [facility] ([facility]) Alkaline Phosphatase 86 U/L 45-117 Normal (applies to non-num virgil results) [facility]) Albumin 4.0 GM/DL 3.2-5.2 Normal (applies to non-numeric resul ts) [facility]) Albumin/Globulin Ratio 1.2 1.2-2.2 Normal (applies to non-n umeric results) [facility] ([facility]) ID Date Data Source [id number] 05/10/2021 03:32:00 PM EDT [facility] ([facility] Name Value Range Interpretation Code Description Data Cherie rce(s) Supporting Document(s) Glucose, Fasting 95 mg/dL 70-100 [facility]) Blood Urea Nitrogen 15 mg/dL 7-18 [facility] ([facility]) Glomerular Filtration Rate Laboratory test result [facility] ([facility]) <content>Units are mL/min/1.73 m2</content>
<content></content>
<content>Chronic Kidney Disease Staging per NKF:</content>
<content></content>
<content>Stage I & II GFR >=60 Normal to Mildly Decreased</content>
<content>Stage III GFR 30-59 Moderately Decreased</content>
<content>Stage IV GFR 15-29 Severely Decreased</content>
<content>Stage V GFR <15 Very Little GFR Left</content>
<content>ESRD GFR <15 on CARDIAC NURSE SPECIALIST</content>
<content></content> Creatinine For GFR 0.65 mg/dL 0.55-1.30 [facility] ([facility]) Potassium Serum 4.0 meq/L 3.5-5.1 [facility] ([facility]) Chloride Level 106 meq/L 98-107 [facility] ([facility]) Sodium Level 138 meq/L 136-145 [facility] ([facility]) Calcium Level 9.2 mg/dL 8.8-10.2 [facility] ([facility]) Carbon Dioxide Level 27 meq/L 21-32 [facility] ([facility]) Anion Gap 5 meq/L 8-16 [facility] ID Date Data Source [id number] 02/18/2021 10:32:00 AM EDT [facility] ([facility]) Name Value Range Interpretation Code Description Data Cherie rce(s) Supporting Document(s) Calcidiol [Mass/volume] in Serum or Plasma 23.2 ng/mL 30.0-100.0 [facility] ([facility]) ID Date Data Source [id number] 12/21/2020 12:00:00 AM EST [facility] Renetta Ankush Prasad DO Patient Name: JUAN LUIS [id number] Date of : 1955 1 Date of Exam: 12/21/2020NataliaTAMIKA tejeda [id number]#: Fax: [phone] EXAM: CHEST (2 VIEW) X-RAYCLINICAL [...] rce(s) Supporting Document(s) ID Date Data Source [id number] 12/21/2020 12:00:00 AM EST [facility] Renetta Rogerseano Zelalem DO Patient Name: JUAN LUIS [id number] Date of : 1955 1 Date of Exam: 12/21/2020BenjaminTAMIKA ardon [id number]#: Fax: [phone] EXAM: THORACIC SPINE (3 VIEW) [...] rce(s) Supporting Document(s) ID Date Data Source [id number] 11/05/2020 11:25:00 AM EST [facility] ([facility]) Name Value Range Interpretation Code Description Data Cherie rce(s) Supporting Document(s) Thyroid Stimulating Hormone 0.454 uIU/ML 0.358-3.740 Norm al (applies to non- numeric results) [facility] ([facility]) Free T4 1.14 ng/dL 0.76-1.46 Normal (applies to non-numeric resul ts) [facility] ([facility]) ID Date Data Source [id number] 11/05/2020 11:25:00 AM EST [facility] ([facility]) Name Value Range Interpretation Code Description Data Cherie rce(s) Supporting Document(s) Triglycerides Level 93 mg/dL Normal (applies to non-nume mya results) [facility] ([facility]) HDL Cholesterol 46 mg/dL Normal (applies to non-numeric results) [facility] ([facility]) Cholesterol Level 154 mg/dL Normal (applies to non-numeri c results) [facility] ([facility]) Non-HDL-C 108 mg/dL Normal (applies to non-numeric resul ts) [facility] ([facility]) LDL Cholesterol 89 mg/dL Normal (applies to non-numeric results) [facility]) Cholesterol Risk Ratio 3.347 Normal (applies to non-n umeric results) [facility]) ID Date Data Source [id number] 11/05/2020 11:25:00 AM EST [facility] ([facility]) Name Value Range Interpretation Code Description Data Cherie rce(s) Supporting Document(s) Hemoglobin A1c 5.3 % Normal (applies to non-numeric r esults) [facility]) <content>REFERENCE RANGES:</content><br/ ><content></content>
<content><=5.6% NORMAL</content>
<content>5.7-6.4% SUGGESTS IMPAIRED GLUCOSE METABOLISM/PREDIABETIC</content>
<content>>= 6.5% ABNORMAL</content>
<content></content> Estimated Average Glucose 105 mg/dL 60-110 Normal (applies to non-numeric results) [facility]) ID Date Data Source [id number] 11/05/2020 11:25:00 AM EST [facility] ([facility]) Name Value Range Interpretation Code Description Data Cherie rce(s) Supporting Document(s) Red Blood Count 4.60 10 4.00-5.40 Normal (applies to non-numeric results) [facility]) White Blood Count 8.1 10 4.0-10.0 Normal (applies to non-numeri c results) [facility]) Mean Corpuscular Volume 90.7 fl 80.0-96.0 Normal ( applies to non-numeric results) [facility]) Hemoglobin 13.9 g/dL 12.0-15.5 Normal (applies to non-numeric resul ts) [facility]) Hematocrit 41.7 % 36.0-47.0 Normal (applies to non-numeric resul ts) [facility] ([facility]) Mean Corpuscular HGB Conc 33.3 g/dL 32.0-36.5 Normal (applies to non-numeric results) [facility] ([facility]) Mean Corpuscular Hemoglobin 30.2 pg 27.0-33.0 Norm al (applies to non-numeric results) [facility] ([facility]) Neutrophils % 55.2 % 36.0-66.0 Normal (applies to non-numeric re sults) [facility] ([facility]) Red Cell Distribution Width 12.7 % 11.5-14.5 Norm al (applies to non-numeric results) [facility] ([facility]) Platelet Count, Automated 361 10 150-450 Normal (applies to non-numeric results) [facility] ([facility]) Lymph % 33.6 % 24.0-44.0 Normal (applies to non-numeric resul ts) [facility] ([facility]) Dickens % 8.2 % 0.0-5.0 Above high normal [facility] ([facility]) Baso % 1.1 % 0.0-1.0 Above high normal [facility] ([facility]) Eos % 1.5 % 0.0-3.0 Normal (applies to non-numeric resul ts) [facility] ([facility]) Immature Granulocyte % 0.4 % 0-3.0 Normal (applies to non-n umeric results) [facility] ([facility]) Nucleated Red Blood Cell % 0.0 % 0-0 Normal (applies to n on-numeric results) [facility] ([facility]) Neutrophils # 4.5 10 1.5-8.5 Normal (applies to non-numeric re sults) [facility] ([facility]) Lymph # 2.7 10 1.5-5.0 Normal (applies to non-numeric resul ts) [facility] ([facility]) Dickens # 0.7 10 0.0-0.8 Normal (applies to non-numeric resul ts) [facility] ([facility]) Baso # 0.1 10 0.0-0.2 Normal (applies to non-numeric resul ts) [facility] ([facility]) Eos # 0.1 10 0.0-0.5 Normal (applies to non-numeric resul ts) [facility]) ID Date Data Source [id number] 11/05/2020 11:25:00 AM EST [facility] ([facility]) Name Value Range Interpretation Code Description Data Cherie rce(s) Supporting Document(s) Glucose, Fasting 104 mg/dL 70-100 Above high normal [facility] ([facility]) Blood Urea Nitrogen 14 mg/dL 7-18 Normal (applies to non-nume mya results) [facility] ([facility]) Creatinine For GFR 0.87 mg/dL 0.55-1.30 Normal (applies to non -numeric results) [facility] ([facility]) Glomerular Filtration Rate Laboratory test result Normal (applies to non- numeric results) [facility] ([facility]) <content>Units are mL/min/1.73 m2</content>
<content></content>
<content>Chronic Kidney Disease Staging per NKF:</content>
<content></content>
<content>Stage I & II GFR >=60 Normal to Mildly Decreased</content>
<content>Stage III GFR 30- 59 Moderately Decreased</content>
<content>Stage IV GFR 15-29 Severely Decreased</content>
<content>Stage V GFR <15 Very Little GFR Left</content>
<content>ESRD GFR <15 on CARDIAC NURSE SPECIALIST</content>
<content></content> Sodium Level 138 meq/L 136-145 Normal (applies to non-numeric res ults) [facility] [facility] Chloride Level 105 meq/L 98-107 Normal (applies to non-numeric r esults) [facility] ([facility]) Potassium Serum 3.5 meq/L 3.5-5.1 Normal (applies to non-numeric results) [facility] ([facility]) Carbon Dioxide Level 28 meq/L 21-32 Normal (applies to non-num virgil results) [facility] ([facility]) Anion Gap 5 meq/L 8-16 Below low normal [facility] ( [facility]) Calcium Level 9.6 mg/dL 8.8-10.2 Normal (applies to non-numeric re sults) [facility] ([facility]) Alt/SGPT 26 U/L 12-78 Normal (applies to non-numeric resul ts) [facility] ([facility]) Ast/Sgot 14 U/L 7-37 Normal (applies to non-numeric resul ts) [facility] ([facility]) Alkaline Phosphatase 93 U/L 45-117 Normal (applies to non-num virgil results) [facility] ([facility]) Bilirubin,Total 0.5 mg/dL 0.2-1.0 Normal (applies to non-numeric results) [facility] Albumin 4.2 GM/DL 3.2-5.2 Normal (applies to non-numeric resul ts) [facility] Total Protein 7.1 GM/DL 6.4-8.2 Normal (applies to non-numeric re sults) [facility] ([facility]) Albumin/Globulin Ratio 1.4 1.2-2.2 Normal (applies to non-n umeric results) [facility] ([facility]) Procedure Social History Code Duration Value Status Description Data Source(s ) Smoking 01/24/2021 12:00:00 AM EDT Current Smoker completed Curre nt Smoker eCW1 ([facility]) Smoking 01/24/2021 12:00:00 AM EDT Current Smoker completed Curre nt Smoker eCW1 ([facility]ly [facility]) Vital Signs ID Date Data Source UNK Name Value Range Interpretation Code Description Data Source(s) Systolic blood pressure 118 mm[Hg] 118 mm[Hg] M [facility] ([facility] ) Body mass index (BMI) [Ratio] 29.7 kg/m2 29.7 k g/m2 [facility] Oxygen saturation in Arterial blood by Pulse oximetry 94 % 94 % [facility] Diastolic blood pressure 68 mm[Hg] 68 mm[Hg] [facility] Heart rate 88 /min 88 /min [facility] ([facility] ) Body height 63.8 [in_i] 63.8 [in_i] [facility] ([facility]) 5'3.80" Body weight 172.00 [lb_av] 172.00 [lb_av] [facility] T ([facility] ) Body height 63.8 [in_i] 63.8 [in_i] [facility] ([facility] ) 5'3.80" Body weight 172.00 [lb_av] 172.00 [lb_av] [facility] ([facility] ) Systolic blood pressure 118 mm[Hg] 118 mm[Hg] M [facility] ([facility] ) Diastolic blood pressure 76 mm[Hg] 76 mm[Hg] [facility] ([facility] ) Heart rate 104 /min 104 /min [facility] ([facility] ) Body temperature 97.1 [degF] 97.1 [degF] [facility] ([facility] ) Body mass index (BMI) [Ratio] 29.7 kg/m2 29.7 k g/m2 [facility] ([facility] ) Oxygen saturation in Arterial blood by Pulse oximetry 94 % 94 % [facility] ([facility] ) Body mass index (BMI) [Ratio] 29.7 kg/m2 29.7 k g/m2 [facility] ([facility] ) Systolic blood pressure 132 mm[Hg] 132 mm[Hg] M [facility] ([facility] ) Diastolic blood pressure 80 mm[Hg] 80 mm[Hg] [facility] ([facility] ) Heart rate 91 /min 91 /min [facility] ([facility] ) Body temperature 97.4 [degF] 97.4 [degF] [facility] ([facility] ) Body height 63.8 [in_i] 63.8 [in_i] [facility] ([facility] ) 5'3.80" Body weight 172.12 [lb_av] 172.12 [lb_av] [facility] T ([facility] ) Oxygen saturation in Arterial blood by Pulse oximetry 98 % 98 % [facility] ([facility] ) Systolic blood pressure 132 mm[Hg] 132 mm[Hg] M [facility] ([facility]) Diastolic blood pressure 88 mm[Hg] 88 mm[Hg] [facility] ([facility]) Body height 64.8 [in_i] 64.8 [in_i] [facility] ([facility]) 5'4.80" Body weight 172.00 [lb_av] 172.00 [lb_av] [facility] T ([facility]) Body mass index (BMI) [Ratio] 28.8 kg/m2 28.8 k g/m2 [facility] ([facility]) Heart rate 91 /min 91 /min [facility] ([facility]) Respiratory rate 20 /min 20 /min [facility] ( [facility]) Body temperature 98.2 [degF] 98.2 [degF] [facility] ([facility]) Oxygen saturation in Arterial blood by [facility]ulse [facility]ximetry 95 % 95 % [facility] [place] body weight 120 [lb_av] 120 [lb_av] [facility] T ([facility]) Body weight 174.6 [lb_av] 174.6 [lb_av] eCW1 ([facility]) Body height 55 [in_i] 55 [in_i] eCW1 ([facility]) Body mass index (BMI) [Ratio] 40.58 kg/m2 40.58 kg/m2 W1 ([facility]) Heart rate 90 /min 90 /min eCW1 ([facility]) Respiratory rate 18 /min 18 /min eCW1 ([facility]) Body temperature 96.0 [degF] 96.0 [degF] eCW1 ( [facility]) Systolic blood pressure 126 mm[Hg] 126 mm[Hg] e CW1 ([facility]) Diastolic blood pressure 62 mm[Hg] 62 mm[Hg] eCW1 ([facility]) Systolic blood pressure 150 mm[Hg] 150 mm[Hg] M [facility] ([facility]) Body mass index (BMI) [Ratio] 29.7 kg/m2 29.7 k g/m2 [facility] ([facility]) Heart rate 78 /min 78 /min [facility] ([facility]) Respiratory rate 14 /min 14 /min [facility] ( [facility]) Body temperature 97.6 [degF] 97.6 [degF] [facility] ([facility]) Oxygen saturation in Arterial blood by Pulse oximetry 98 % 98 % [facility] ([facility]) [place] body weight 120 [lb_av] 120 [lb_av] [facility] T ([facility]) Diastolic blood pressure 88 mm[Hg] 88 mm[Hg] [facility] ([facility]) Body height 64.8 [in_i] 64.8 [in_i] [facility] ([facility]) 5'4.80" Body weight 177.38 [lb_av] 177.38 [lb_av] [facility] T ([facility]) Diastolic blood pressure 68 mm[Hg] 68 mm[Hg] [facility] ([facility]) Oxygen saturation in Arterial blood by Pulse oximetry 95 % 95 % [facility] Body height 64.8 [in_i] 64.8 [in_i] [facility] ([facility]) 5'4.80" [place] body weight 120 [lb_av] 120 [lb_av] [facility] T ([facility]) Body weight 179.00 [lb_av] 179.00 [lb_av] [facility] T ([facility]) Body mass index (BMI) [Ratio] 30.0 kg/m2 30.0 k g/m2 [facility] ([facility]) Systolic blood pressure 130 mm[Hg] 130 mm[Hg] M [facility] ([facility]) Heart rate 92 /min 92 /min [facility] ([facility]) Respiratory rate 18 /min 18 /min [facility] ( [facility]) Body temperature 98.4 [degF] 98.4 [degF] [facility] ([facility])
[2021-09-07] MEDS ORDERED: LIDOCAINE W/EPINEPHRINE 1% 20ML VIAL SC ONE (01:05)
[2021-09-07 01:50] VITALS: BP 129/71
== END 2021-09-07 01:51 | disposition home or self-care (01) ==
LOC: M ED 21:29
DX: S01.81XA Laceration without foreign body of other part of head, initial encounter (principal); W19.XXXA Unspecified fall, initial encounter; Y92.099 Unspecified place in other non-institutional residence as the place of occurrence of the external cause; Y93.9 Activity, unspecified; Y99.9 Unspecified external cause status; I10 Essential (primary) hypertension; F17.200 Nicotine dependence, unspecified, uncomplicated

== ENCOUNTER → 2022-03-16 | Outpatient (CLI) | payer MEDICARE ==
[2022-03-16 09:40] LABS: HEMATOCRIT 40.3 % (36.0-47.0); HEMOGLOBIN 13.5 g/dl (12.0-15.5); MEAN CORPUSCULAR HEMOGLOBIN 31.4 pg (27.0-33.0); MEAN CORPUSCULAR HGB CONC 33.5 g/dl (32.0-36.5); MEAN CORPUSCULAR VOLUME 93.7 fl (80.0-96.0); NEUTROPHILS % 46.9 % (36.0-66.0); PLATELET COUNT, AUTOMATED 399 10^3/uL (150-450)
[2022-03-16 09:41] LABS: BASO # 0.1 10^3/uL (0.0-0.2); EOS # 0.2 10^3/uL (0.0-0.5); EOS % 2.6 % (0.0-3.0); LYMPH # 2.9 10^3/uL (1.5-5.0); LYMPH % 41.1 % (24.0-44.0); MONO # 0.6 10^3/uL (0.0-0.8); MONO % 8.1 % (2.0-8.0); NEUTROPHILS # 3.3 10^3/uL (1.5-8.5)
[2022-03-16 09:55] LABS: HEMOGLOBIN A1c 5.4 %
[2022-03-16 10:17] LABS: ALBUMIN 3.9 GM/DL (3.2-5.2); ALT/SGPT 22 U/L (12-78); BILIRUBIN,TOTAL 0.4 MG/DL (0.2-1.0); BLOOD UREA NITROGEN 14 MG/DL (7-18); CALCIUM LEVEL 9.7 MG/DL (8.8-10.2); CARBON DIOXIDE LEVEL 31 MEQ/L (21-32); CHLORIDE LEVEL 104 MEQ/L (98-107); CHOLESTEROL LEVEL 180 MG/DL (<200); CHOLESTEROL RISK RATIO 3.272 (<5); CREATININE FOR GFR 0.81 MG/DL (0.55-1.30); FREE T4 0.87 NG/DL (0.76-1.46); GLOMERULAR FILTRATION RATE > 60.0 (>45); GLUCOSE, FASTING 102 MG/DL (70-100); HDL CHOLESTEROL 55 MG/DL (>40); LDL CHOLESTEROL 98 MG/DL (<100); NON-HDL-C 125 MG/DL; POTASSIUM SERUM 4.7 MEQ/L (3.5-5.1); SODIUM LEVEL 139 MEQ/L (136-145); TOTAL 25(OH) VITAMIN D 21.9 NG/ML (30.0-100.0); TOTAL PROTEIN 7.4 GM/DL (6.4-8.2); TRIGLYCERIDES LEVEL 133 MG/DL (<150)
== END ==
LOC: M WUC 08:31
PROVIDERS: ATTEND Physician Assistant
DX: Z13.220 Encounter for screening for lipoid disorders (principal); Z13.29 Encounter for screening for other suspected endocrine disorder; E78.00 Pure hypercholesterolemia, unspecified

== ENCOUNTER → 2022-04-18 | Outpatient (CLI) | payer BC, MEDICARE, SELFPAY | LOC: M WHC 15:30 | PROVIDERS: ATTEND Physician Assistant | DX: Z12.31 Encounter for screening mammogram for malignant neoplasm of breast (principal) ==

== ENCOUNTER 2022-09-06 06:18 | Inpatient (IN) | payer MEDICARE ==
[~2022-09-06] VITALS: Ht 165.1 cm; Wt 82.5 kg
[2022-09-06 09:10] LABS: HEMATOCRIT 41.7 % (36.0-47.0); HEMOGLOBIN 14.4 g/dl (12.0-15.5); MEAN CORPUSCULAR HEMOGLOBIN 30.1 pg (27.0-33.0); MEAN CORPUSCULAR HGB CONC 34.5 g/dl (32.0-36.5); MEAN CORPUSCULAR VOLUME 87.1 fl (80.0-96.0); PLATELET COUNT, AUTOMATED 383 10^3/uL (150-450); RED BLOOD COUNT 4.79 10^6/uL (4.00-5.40); WHITE BLOOD COUNT 8.9 10^3/uL (4.0-10.0)
[2022-09-06] MEDS ORDERED: MORPHINE 4 MG/ML 1ML VIAL IV ONE (09:20)
[2022-09-06] MEDS ORDERED: ONDANSETRON 4MG 2ML VIAL IV ONE (09:20)
[2022-09-06] MEDS ORDERED: NS 1,000 ML IV ONE (09:20)
[2022-09-06 09:36] LABS: ATYPICAL LYMPH 2 % (0-5); LYMPHOCYTES 15 % (16-44); MONOCYTES 7 % (0-5); NEUTROPHILS 60 % (28-66); PLATELET ESTIMATE NORMAL (NORMAL)
[2022-09-06 09:41] LABS: ALBUMIN 3.6 GM/DL (3.2-5.2); BILIRUBIN,DIRECT 0.4 MG/DL (0.0-0.2); CALCIUM LEVEL 9.6 MG/DL (8.8-10.2); CREATININE FOR GFR 1.51 MG/DL (0.55-1.30); GLOMERULAR FILTRATION RATE 36.5 (>45); POTASSIUM SERUM 3.5 MEQ/L (3.5-5.1); TOTAL PROTEIN 7.7 GM/DL (6.4-8.2)
[2022-09-06] MEDS ORDERED: ISOVUE-370 76% 100ML VIAL As Ordered ONE (09:53)
[2022-09-06] MEDS ORDERED: NS 1,480 ML in IV 1 EA IV ONE (11:40)
[2022-09-06] MEDS ORDERED: PIPERACILLIN/TAZOBACTAM SOD 4.5 GM in D5W MINI-BAG PLUS 50 ML IV ONE (11:40)
[2022-09-06] MEDS ORDERED: LR 1,000 ML IV SCH ×2 (13:00→18:20)
[2022-09-06 13:06] LABS: INR 1.19; PARTIAL THROMBOPLASTIN TIME 29.5 SECONDS (24.8-34.2); PROTHROMBIN TIME 15.4 SECONDS (12.5-14.5)
[2022-09-06] MEDS ORDERED: AMLO10TA PO (13:38)
[2022-09-06] MEDS ORDERED: OMEG10002 PO (13:38)
[2022-09-06] MEDS ORDERED: CITRTAB18 PO (13:38)
[2022-09-06] MEDS ORDERED: GLUCTAB7 PO (13:41)
[2022-09-06] MEDS ORDERED: HOME MED LIST COMPLETE! XX SCH (13:45)
[2022-09-06] MEDS ORDERED: fentaNYL 100 MCG/2 ML INJECTION IV ONE (15:55)
[2022-09-06] MEDS ORDERED: PIPERACILLIN/TAZOBACTAM SOD 3.375 GM in D5W MINI-BAG PLUS 50 ML IV ONE (18:05)
[2022-09-06] MEDS ORDERED: ONDANSETRON 4MG 2ML VIAL IV PRN ×2 (18:20→21:55)
[2022-09-06] MEDS ORDERED: MORPHINE 2 MG/ML 1ML VIAL IV PRN (18:20)
[2022-09-06] MEDS ORDERED: oxyCODONE 5MG TAB PO PRN (18:20)
[2022-09-06] MEDS ORDERED: fentaNYL 100 MCG/2 ML INJECTION IV PRN (18:20)
[2022-09-06] MEDS ORDERED: LIDOCAINE 1% SDV 30ML VIAL As Ordered ONE (19:02)
[2022-09-06] MEDS ORDERED: BUPIVACAINE HCL 0.25% 30ML VIAL As Ordered ONE (19:02)
[2022-09-06] MEDS ORDERED: MIDAZOLAM INJ 2MG/2ML VIAL (J2250 PER 1MG) As Ordered ONE (19:31)
[2022-09-06] MEDS ORDERED: fentaNYL 250 MCG/5 ML INJECTION As Ordered ONE (19:31)
[2022-09-06] MEDS ORDERED: propofoL 200 MG/20 ML VIAL As Ordered ONE (19:33)
[2022-09-06] MEDS ORDERED: METOCLOPRAMIDE INJ 10MG/2ML VIAL As Ordered ONE (19:33)
[2022-09-06] MEDS ORDERED: ROCURONIUM BROMIDE 50 MG/5 ML VIAL As Ordered ONE (19:33)
[2022-09-06] MEDS ORDERED: LIDOCAINE 2% 100MG/5ML SDV (FOR ANES.) As Ordered ONE (19:33)
[2022-09-06] MEDS ORDERED: KETOROLAC 60MG 2ML VIAL As Ordered ONE (19:34)
[2022-09-06] MEDS ORDERED: ONDANSETRON 4MG 2ML VIAL As Ordered ONE (19:34)
[2022-09-06] MEDS ORDERED: ZOSYN 3.375GM VIAL As Ordered ONE (19:55)
[2022-09-06] MEDS ORDERED: PHENYLephrine 500MCG 5ML (100MCG/ML) SYRINGE As Ordered ONE ×2 (20:13→20:14)
[2022-09-06] MEDS ORDERED: ePHEDrine SULFATE 25 MG/5 ML(5MG/ML) SYRINGE As Ordered ONE (20:14)
[2022-09-06] MEDS ORDERED: ACETAMINOPHEN 1000MG 100ML IV BAG As Ordered ONE (20:21)
[2022-09-06] MEDS ORDERED: MORPHINE 4 MG/ML 1ML VIAL IV PRN (21:55)
[2022-09-06] MEDS ORDERED: NORCO, ANEXSIA 5/325MG TABLET (HYDROcodone/ACETAMINOPHEN) PO PRN (21:55)
[2022-09-06 22:34] VITALS: BP 92/64
[2022-09-06 23:30] VITALS: BP 103/71
[2022-09-07] VITALS (9 sets, daily range): BP systolic 90–104; BP diastolic 50–71
[2022-09-07] MEDS: PIPERACILLIN/TAZOBACTAM SOD 3.375 GM in D5W MINI-BAG PLUS 50 ML IV SCH ×4 (00:51→17:46)
[2022-09-07] MEDS: LR 1,000 ML IV SCH ×3 (03:28→13:51)
[2022-09-07 06:16] LABS: HEMATOCRIT 29.7 % (36.0-47.0); MEAN CORPUSCULAR HEMOGLOBIN 30.7 pg (27.0-33.0); MEAN CORPUSCULAR HGB CONC 34.3 g/dl (32.0-36.5); MEAN CORPUSCULAR VOLUME 89.5 fl (80.0-96.0); PLATELET COUNT, AUTOMATED 285 10^3/uL (150-450); RED BLOOD COUNT 3.32 10^6/uL (4.00-5.40); WHITE BLOOD COUNT 9.2 10^3/uL (4.0-10.0)
[2022-09-07 06:34] LABS: HEMOGLOBIN 10.2 g/dl (12.0-15.5)
[2022-09-07 06:40] LABS: CALCIUM LEVEL 7.6 MG/DL (8.8-10.2); CREATININE FOR GFR 1.31 MG/DL (0.55-1.30); POTASSIUM SERUM 4.1 MEQ/L (3.5-5.1)
[2022-09-07] MEDS: ENOXAPARIN 40MG/0.4ML SYRINGE (J1650 PER 10MG) SC SCH (07:45)
[2022-09-07 07:48] LABS: ATYPICAL LYMPH 6 % (0-5); LYMPHOCYTES 8 % (16-44); METAMYELOCYTES 9 % (0-0); MONOCYTES 1 % (0-5); MYELOCYTES 1 % (0-0); NEUTROPHILS 27 % (28-66)
[2022-09-07 07:49] LABS: PLATELET ESTIMATE NORMAL (NORMAL)
[2022-09-07] MEDS: ACETAMINOPHEN TAB 650MG DOSE (2X325MG) PO PRN (11:08)
[2022-09-07] MEDS: NORCO, ANEXSIA 5/325MG TABLET (HYDROcodone/ACETAMINOPHEN) PO PRN (12:44)
[2022-09-07] MEDS: KETOROLAC 30 MG/ML 1ML VIAL IV PRN (17:48)
[2022-09-08] VITALS: BP 120/79
[2022-09-08] MEDS: PIPERACILLIN/TAZOBACTAM SOD 3.375 GM in D5W MINI-BAG PLUS 50 ML IV SCH ×4 (00:25→17:53)
[2022-09-08] MEDS: LR 1,000 ML IV SCH ×3 (00:26→12:24)
[2022-09-08] MEDS: NORCO, ANEXSIA 5/325MG TABLET (HYDROcodone/ACETAMINOPHEN) PO PRN (00:29)
[2022-09-08] MEDS: KETOROLAC 30 MG/ML 1ML VIAL IV PRN ×2 (01:42→12:20)
[2022-09-08 04:00] VITALS: BP 93/64
[2022-09-08 06:00] VITALS: BP 103/63
[2022-09-08 06:19] LABS: HEMATOCRIT 28.7 % (36.0-47.0); HEMOGLOBIN 9.5 g/dl (12.0-15.5); MEAN CORPUSCULAR HEMOGLOBIN 30.4 pg (27.0-33.0); MEAN CORPUSCULAR HGB CONC 33.1 g/dl (32.0-36.5); MEAN CORPUSCULAR VOLUME 91.7 fl (80.0-96.0); PLATELET COUNT, AUTOMATED 296 10^3/uL (150-450); RED BLOOD COUNT 3.13 10^6/uL (4.00-5.40)
[2022-09-08 06:58] LABS: ANISOCYTOSIS 1+; LYMPHOCYTES 9 % (16-44); MONOCYTES 1 % (0-5); NEUTROPHILS 89 % (28-66); PLATELET ESTIMATE NORMAL (NORMAL)
[2022-09-08 07:00] LABS: BLOOD UREA NITROGEN 22 MG/DL (7-18); CALCIUM LEVEL 7.9 MG/DL (8.8-10.2); CARBON DIOXIDE LEVEL 27 MEQ/L (21-32); CHLORIDE LEVEL 105 MEQ/L (98-107); CREATININE FOR GFR 0.87 MG/DL (0.55-1.30); GLOMERULAR FILTRATION RATE > 60.0 (>45); GLUCOSE, FASTING 92 MG/DL (70-100); POTASSIUM SERUM 3.8 MEQ/L (3.5-5.1); SODIUM LEVEL 138 MEQ/L (136-145)
[2022-09-08] MEDS ORDERED: FUROSEMIDE 20MG/2ML VIAL (J1940) IV ONE (07:55)
[2022-09-08] MEDS: ENOXAPARIN 40MG/0.4ML SYRINGE (J1650 PER 10MG) SC SCH (10:02)
[2022-09-08 15:05] VITALS: BP 104/63
[2022-09-08] MEDS: PANTOPRAZOLE 40MG VIAL IV SCH (19:58)
[2022-09-08 21:30] VITALS: BP 105/54
[2022-09-09] MEDS: LR 1,000 ML IV SCH ×3 (00:30→11:26)
[2022-09-09] MEDS: PIPERACILLIN/TAZOBACTAM SOD 3.375 GM in D5W MINI-BAG PLUS 50 ML IV SCH ×5 (00:30→23:52)
[2022-09-09] MEDS: KETOROLAC 30 MG/ML 1ML VIAL IV PRN (00:43)
[2022-09-09 05:44] LABS: BASO % 0.3 % (0.0-1.0); EOS # 0.1 10^3/uL (0.0-0.5); EOS % 0.6 % (0.0-3.0); HEMATOCRIT 27.4 % (36.0-47.0); HEMOGLOBIN 9.3 g/dl (12.0-15.5); LYMPH # 2.3 10^3/uL (1.5-5.0); LYMPH % 19.7 % (24.0-44.0); MEAN CORPUSCULAR HEMOGLOBIN 30.6 pg (27.0-33.0); MEAN CORPUSCULAR HGB CONC 33.9 g/dl (32.0-36.5); MEAN CORPUSCULAR VOLUME 90.1 fl (80.0-96.0); MONO # 0.6 10^3/uL (0.0-0.8); MONO % 5.4 % (2.0-8.0); NEUTROPHILS # 8.3 10^3/uL (1.5-8.5); NEUTROPHILS % 71.7 % (36.0-66.0); PLATELET COUNT, AUTOMATED 345 10^3/uL (150-450); RED BLOOD COUNT 3.04 10^6/uL (4.00-5.40); WHITE BLOOD COUNT 11.6 10^3/uL (4.0-10.0)
[2022-09-09 06:00] VITALS: BP 127/65
[2022-09-09] MEDS: PANTOPRAZOLE 40MG VIAL IV SCH ×2 (06:17→18:01)
[2022-09-09 06:32] LABS: BLOOD UREA NITROGEN 19 MG/DL (7-18); CALCIUM LEVEL 8.1 MG/DL (8.8-10.2); CARBON DIOXIDE LEVEL 29 MEQ/L (21-32); CHLORIDE LEVEL 102 MEQ/L (98-107); CREATININE FOR GFR 0.83 MG/DL (0.55-1.30); GLOMERULAR FILTRATION RATE > 60.0 (>45); GLUCOSE, FASTING 86 MG/DL (70-100); POTASSIUM SERUM 3.3 MEQ/L (3.5-5.1); SODIUM LEVEL 136 MEQ/L (136-145)
[2022-09-09] MEDS: POTASSIUM CHLORIDE 10MEQ SR TABLET PO SCH (12:55)
[2022-09-09 14:00] VITALS: BP 128/78
[2022-09-09 22:00] VITALS: BP 117/63
[2022-09-09] MEDS: ACETAMINOPHEN TAB 650MG DOSE (2X325MG) PO PRN (23:43)
[2022-09-10 04:00] VITALS: BP 125/65
[2022-09-10] MEDS: PIPERACILLIN/TAZOBACTAM SOD 3.375 GM in D5W MINI-BAG PLUS 50 ML IV SCH ×2 (06:01→11:06)
[2022-09-10] MEDS: PANTOPRAZOLE 40MG VIAL IV SCH (06:01)
[2022-09-10 06:02] LABS: HEMATOCRIT 29.3 % (36.0-47.0); HEMOGLOBIN 9.6 g/dl (12.0-15.5); MEAN CORPUSCULAR HEMOGLOBIN 30.3 pg (27.0-33.0); MEAN CORPUSCULAR HGB CONC 32.8 g/dl (32.0-36.5); MEAN CORPUSCULAR VOLUME 92.4 fl (80.0-96.0); PLATELET COUNT, AUTOMATED 387 10^3/uL (150-450); RED BLOOD COUNT 3.17 10^6/uL (4.00-5.40); WHITE BLOOD COUNT 10.9 10^3/uL (4.0-10.0)
[2022-09-10 06:36] LABS: BASOPHILS 1 % (0-1); EOSINOPHILS 5 % (0-3); LYMPHOCYTES 22 % (16-44); MONOCYTES 2 % (0-5); MYELOCYTES 1 % (0-0); NEUTROPHILS 66 % (28-66); PLASMA CELL 1 % (0-0)
[2022-09-10 06:37] LABS: BLOOD UREA NITROGEN 12 MG/DL (7-18); C REACTIVE PROTEIN QUANTITATIV 8.59 MG/DL (0.00-0.30); CALCIUM LEVEL 8.2 MG/DL (8.8-10.2); CARBON DIOXIDE LEVEL 30 MEQ/L (21-32); CHLORIDE LEVEL 103 MEQ/L (98-107); CREATININE FOR GFR 0.76 MG/DL (0.55-1.30); GLOMERULAR FILTRATION RATE > 60.0 (>45); GLUCOSE, FASTING 92 MG/DL (70-100); POTASSIUM SERUM 3.6 MEQ/L (3.5-5.1); SODIUM LEVEL 136 MEQ/L (136-145)
[2022-09-10 06:40] LABS: PLATELET CLUMPS SMALL AMT; PLATELET ESTIMATE NORMAL (NORMAL); SMUDGE CELLS 1+
[2022-09-10] MEDS: POTASSIUM CHLORIDE 10MEQ SR TABLET PO SCH (08:51)
[2022-09-10 08:52] VITALS: BP 125/65
[2022-09-10] MEDS ORDERED: HYDR-3715 PO (10:47)
[2022-09-10] MEDS ORDERED: ESOM40CA35 PO (10:47)
[2022-09-10] MEDS ORDERED: LEVO1TAB39 PO (11:05)
== END 2022-09-10 13:44 | disposition home or self-care (01) | DRG 853 ==
LOC: M ED 06:18 → M ED INP 16:55 → M MSPAV 22:32
PROVIDERS: ADMIT Surgery; ATTEND Surgery
PROC: 0DTJ4ZZ Resection of Appendix, Percutaneous Endoscopic Approach (ICD-10-PCS; principal; 2022-09-06 13:30)
DX: A41.9 Sepsis, unspecified organism (principal); K35.32 Acute appendicitis with perforation, localized peritonitis, and gangrene, without abscess; N17.9 Acute kidney failure, unspecified; I10 Essential (primary) hypertension; J44.9 Chronic obstructive pulmonary disease, unspecified; R05.3 Chronic cough; F17.200 Nicotine dependence, unspecified, uncomplicated; Z79.899 Other long term (current) drug therapy

== ENCOUNTER → 2022-09-11 | Outpatient (REF) | payer MEDICARE ==
[~2022-09-11] MED LIST changes: +AMLO10TA PO; +CITRTAB18 PO; +ESOM40CA35 PO; +GLUCTAB7 PO; +HYDR-3715 PO; +LEVO1TAB39 PO; +OMEG10002 PO
== END ==
LOC: M LAB REF 17:43
PROVIDERS: ATTEND Physician Assistant
DX: R30.0 Dysuria (principal)

== ENCOUNTER → 2022-10-19 | Outpatient (CLI) | payer MEDICARE | LOC: M RAD 12:24 | PROVIDERS: ATTEND Physician Assistant | DX: R91.8 Other nonspecific abnormal finding of lung field (principal); Z87.891 Personal history of nicotine dependence ==

== ENCOUNTER → 2023-04-06 | Outpatient (CLI) | payer MEDICARE | LOC: M PLAIMG 12:33 | PROVIDERS: ATTEND Physician Assistant | DX: J44.9 Chronic obstructive pulmonary disease, unspecified (principal); E04.1 Nontoxic single thyroid nodule; R91.1 Solitary pulmonary nodule ==

== ENCOUNTER → 2023-04-19 | Outpatient (CLI) | payer MEDICARE | LOC: M WHC 08:59 | PROVIDERS: ATTEND Physician Assistant | DX: Z12.31 Encounter for screening mammogram for malignant neoplasm of breast (principal) ==

== ENCOUNTER → 2023-05-03 | Outpatient (CLI) | payer MEDICARE ==
[~2023-05-03] MED LIST changes: +AMLO1TAB25 PO; +LISI20TA33 PO; +SYMB16INH INH
== END ==
LOC: M WHC 08:57
PROVIDERS: ATTEND Physician Assistant
DX: R92.2 Inconclusive mammogram (principal); N63.11 Unspecified lump in the right breast, upper outer quadrant
CPT/HCPCS: 77065; G0279

== ENCOUNTER 2023-05-25 06:31 | Day surgery (SDC) | payer MEDICARE ==
[~2023-05-25] VITALS: Ht 165.1 cm; Wt 85.4 kg
[~2023-05-25 06:31] MED LIST changes: +NS 1,000 ML IV ONE
[2023-05-25] MEDS ORDERED: propofoL 200 MG/20 ML VIAL As Ordered ONE (07:13)
[2023-05-25 08:06] VITALS: TEMP 96.6
[2023-05-25 08:28] VITALS: BP 114/61; O2SAT 96
== END 2023-05-25 08:37 | disposition home or self-care (01) ==
LOC: M OPP 06:31
PROVIDERS: ATTEND Surgery
DX: K63.5 Polyp of colon (principal); K64.9 Unspecified hemorrhoids; K57.30 Diverticulosis of large intestine without perforation or abscess without bleeding; R19.5 Other fecal abnormalities; F17.200 Nicotine dependence, unspecified, uncomplicated; Z79.51 Long term (current) use of inhaled steroids; Z79.899 Other long term (current) drug therapy

== ENCOUNTER → 2023-12-26 | Outpatient (CLI) | payer MEDICARE ==
[~2023-12-26] MED LIST changes: -NS 1,000 ML IV ONE
[2023-12-26 09:46] LABS: BASO # 0.1 10^3/uL (0.0-0.2); BASO % 1.1 % (0.0-1.0); EOS # 0.2 10^3/uL (0.0-0.5); EOS % 2.6 % (0.0-3.0); HEMATOCRIT 40.6 % (36.0-47.0); HEMOGLOBIN 13.2 g/dl (12.0-15.5); LYMPH # 3.1 10^3/uL (1.5-5.0); LYMPH % 41.6 % (24.0-44.0); MEAN CORPUSCULAR HEMOGLOBIN 29.1 pg (27.0-33.0); MEAN CORPUSCULAR HGB CONC 32.5 g/dl (32.0-36.5); MEAN CORPUSCULAR VOLUME 89.4 fl (80.0-96.0); MONO # 0.7 10^3/uL (0.0-0.8); MONO % 8.9 % (2.0-8.0); NEUTROPHILS # 3.3 10^3/uL (1.5-8.5); NEUTROPHILS % 45.5 % (36.0-66.0); PLATELET COUNT, AUTOMATED 409 10^3/uL (150-450); RED BLOOD COUNT 4.54 10^6/uL (4.00-5.40); WHITE BLOOD COUNT 7.3 10^3/uL (4.0-10.0)
[2023-12-26 10:20] LABS: THYROID STIMULATING HORMONE 1.222 uIU/ML (0.55-4.78); TOTAL 25(OH) VITAMIN D 25.2 NG/ML (20.0-100.0)
[2023-12-26 10:21] LABS: ALKALINE PHOSPHATASE 101 U/L (46-116); ALT/SGPT 19 U/L (7.0-40); AST/SGOT 12 U/L (<34); BILIRUBIN,TOTAL 0.4 MG/DL (0.3-1.2); BLOOD UREA NITROGEN 14 MG/DL (9-23); CALCIUM LEVEL 9.6 MG/DL (8.3-10.6); CARBON DIOXIDE LEVEL 29 MMOL/L (20-31); CHLORIDE LEVEL 106 MMOL/L (98-107); CHOLESTEROL LEVEL 183 MG/DL (<200); CREATININE FOR GFR 0.72 MG/DL (0.55-1.30); GLOMERULAR FILTRATION RATE > 60.0 (>45); GLUCOSE, FASTING 99 MG/DL (74-106); HDL CHOLESTEROL 55.3 MG/DL (>40); LDL CHOLESTEROL 104.5 MG/DL (<100); NON-HDL-C 127.7 MG/DL; POTASSIUM SERUM 4.9 MMOL/L (3.5-5.1); SODIUM LEVEL 141 MMOL/L (136-145); TOTAL PROTEIN 7.3 G/DL (5.7-8.2); TRIGLYCERIDES LEVEL 116 MG/DL (<150)
[2023-12-26 10:50] LABS: HEMOGLOBIN A1c 5.5 % (4.0-6.0)
== END ==
LOC: M WUC 08:06
PROVIDERS: ATTEND Physician Assistant
DX: I10 Essential (primary) hypertension (principal); E55.9 Vitamin D deficiency, unspecified

== ENCOUNTER 2024-03-13 10:24 | Emergency (ER) | payer OTHER, MEDICARE ==
[~2024-03-13] VITALS: Ht 165.1 cm; Wt 93.5 kg
[2024-03-13 12:58] VITALS: BP 137/69; TEMP 97; O2SAT 95
== END 2024-03-13 12:55 | disposition home or self-care (01) ==
LOC: M ED 10:24
DX: S13.4XXA Sprain of ligaments of cervical spine, initial encounter (principal); V49.40XA Driver injured in collision with unspecified motor vehicles in traffic accident, initial encounter; M25.512 Pain in left shoulder; Y92.9 Unspecified place or not applicable; Y93.9 Activity, unspecified; Y99.9 Unspecified external cause status; I10 Essential (primary) hypertension; J44.9 Chronic obstructive pulmonary disease, unspecified; F17.210 Nicotine dependence, cigarettes, uncomplicated; Z79.899 Other long term (current) drug therapy

== ENCOUNTER → 2024-04-07 | Outpatient (CLI) | payer MEDICARE | LOC: M RAD 14:47 | PROVIDERS: ATTEND Physician Assistant | DX: Z87.891 Personal history of nicotine dependence (principal) ==

== ENCOUNTER → 2024-04-25 | Outpatient (CLI) | payer MEDICARE | LOC: M RAD 13:38 | PROVIDERS: ATTEND Physician Assistant | DX: E07.9 Disorder of thyroid, unspecified (principal) ==

== ENCOUNTER → 2024-05-05 | Outpatient (CLI) | payer MEDICARE | LOC: M WHC 04-29 08:22 | PROVIDERS: ATTEND Physician Assistant | DX: Z12.31 Encounter for screening mammogram for malignant neoplasm of breast (principal) ==

== ENCOUNTER → 2024-06-19 | Outpatient (CLI) | payer MEDICARE ==
[2024-06-19 13:26] LABS: BASO # 0.1 10^3/uL (0.0-0.2); BASO % 1.2 % (0.0-1.0); EOS # 0.1 10^3/uL (0.0-0.5); EOS % 1.4 % (0.0-3.0); HEMATOCRIT 42.4 % (36.0-47.0); HEMOGLOBIN 13.7 g/dl (12.0-15.5); LYMPH # 2.5 10^3/uL (1.5-5.0); LYMPH % 31.7 % (24.0-44.0); MEAN CORPUSCULAR HEMOGLOBIN 28.8 pg (27.0-33.0); MEAN CORPUSCULAR HGB CONC 32.3 g/dl (32.0-36.5); MEAN CORPUSCULAR VOLUME 89.3 fl (80.0-96.0); MONO # 0.6 10^3/uL (0.0-0.8); MONO % 8.1 % (2.0-8.0); NEUTROPHILS # 4.5 10^3/uL (1.5-8.5); NEUTROPHILS % 57.2 % (36.0-66.0); PLATELET COUNT, AUTOMATED 441 10^3/uL (150-450); RED BLOOD COUNT 4.75 10^6/uL (4.00-5.40); WHITE BLOOD COUNT 7.8 10^3/uL (4.0-10.0)
[2024-06-19 13:36] LABS: ERYTHROCYTE SEDIMENTATION RATE 38 mm/hr (0-30)
== END ==
LOC: M PLALAB 11:18
PROVIDERS: ATTEND Nurse Practitioner Adult Health
DX: H01.003 Unspecified blepharitis right eye, unspecified eyelid (principal)

== ENCOUNTER → 2024-08-07 | Outpatient (REF) | payer MEDICARE | LOC: M LAB REF 14:52 | PROVIDERS: ATTEND Internal Medicine Endocrinology, Diabetes & Metabolism | DX: E04.2 Nontoxic multinodular goiter (principal) ==

== ENCOUNTER → 2024-09-08 | Outpatient (CLI) | payer MEDICARE ==
[2024-09-08 10:37] LABS: BLOOD UREA NITROGEN 14 MG/DL (9-23); CALCIUM LEVEL 9.3 MG/DL (8.3-10.6); CARBON DIOXIDE LEVEL 30 MMOL/L (20-31); CHLORIDE LEVEL 106 MMOL/L (98-107); CREATININE FOR GFR 0.74 MG/DL (0.55-1.30); GLOMERULAR FILTRATION RATE > 60.0 (>39); GLUCOSE, FASTING 104 MG/DL (74-106); SODIUM LEVEL 140 MMOL/L (136-145)
[2024-09-08 10:38] LABS: TOTAL 25(OH) VITAMIN D 28.1 NG/ML (20.0-100.0)
== END ==
LOC: M WUC 08:06
PROVIDERS: ATTEND Nurse Practitioner Family
DX: M81.0 Age-related osteoporosis without current pathological fracture (principal); E55.9 Vitamin D deficiency, unspecified

== ENCOUNTER → 2024-09-08 | Outpatient (CLI) | payer MEDICARE | LOC: M WHC 09:44 | PROVIDERS: ATTEND Nurse Practitioner Family | DX: M81.0 Age-related osteoporosis without current pathological fracture (principal) ==

== ENCOUNTER → 2025-01-16 | Outpatient (REF) | payer MEDICARE ==
[2025-01-16 14:25] LABS: BLOOD UREA NITROGEN 16 MG/DL (9-23); CALCIUM LEVEL 9.8 MG/DL (8.3-10.6); CARBON DIOXIDE LEVEL 32 MMOL/L (20-31); CHLORIDE LEVEL 100 MMOL/L (98-107); CREATININE FOR GFR 0.81 MG/DL (0.55-1.30); GLOMERULAR FILTRATION RATE > 60.0 (>39); GLUCOSE, FASTING 96 MG/DL (74-106); POTASSIUM SERUM 4.1 MMOL/L (3.5-5.1); SODIUM LEVEL 143 MMOL/L (136-145)
== END ==
LOC: M LABWUC 11:52
PROVIDERS: ATTEND Nurse Practitioner Family
DX: M81.0 Age-related osteoporosis without current pathological fracture (principal)